=== PATIENT | male | born 1950 | race Caucasian/White ===

== ENCOUNTER 2017-05-10 15:56 | Observation (INO) | payer MEDICARE ==
[2017-05-10] MEDS ORDERED: SODIUM CHLORIDE 0.9% 1,000 ML IV STA (16:07)
[2017-05-10 16:38] LABS: Basophils % (A) 0 %; Eosinophils # (A) 0.1 k/uL (0-0.7); Eosinophils % (A) 1 %; HCT 45.9 % (39.0-53.0); HGB 15.3 gm/dL (13.0-17.5); Lymphocytes # (A) 1.4 k/uL (1.0-4.8); Lymphocytes % (A) 17 %; MCH 29.4 pg (25.0-35.0); MCHC 33.5 g/dL (31.0-37.0); MCV 87.8 fL (80.0-100.0); Mean Platelet Volume 6.9; Monocytes # (A) 0.6 k/uL (0-1.0); Monocytes % (A) 7 %; Neutrophils # (A) 6.2 k/uL (1.3-7.7); Neutrophils % (A) 73 %; Platelet Count 349 k/uL (150-450); RBC 5.22 m/uL (4.30-5.90); RDW 12.8 % (11.5-15.5); WBC 8.5 k/uL (3.8-10.6)
[2017-05-10 16:46] LABS: D-Dimer 0.2 mg/L FEU (<0.60)
--- NOTE | 2017-05-10 16:46 | XR ---
EXAMINATION TYPE: XR chest 2V DATE OF EXAM: 05/10/2017 COMPARISON: NONE HISTORY: Shortness of breath TECHNIQUE: Frontal and lateral views of the chest are obtained. FINDINGS: Scattered senescent parenchymal changes noted. No evidence for infiltrate. No evidence for atelectasis. Heart size is stable. Mediastinal structures are stable and grossly unremarkable. No evidence for hilar prominence. Degenerative changes dorsal spine. IMPRESSION: 1. No evidence for acute pulmonary disease.
[2017-05-10 16:50] LABS: Partial Thromboplastin Time 22.2 sec (22.0-30.0); Prothrombin Time 10.2 sec (9.0-12.0)
[2017-05-10 16:55] LABS: ALT 45 U/L (21-72); AST 37 U/L (17-59); Albumin 4.6 g/dL (3.5-5.0); Alkaline Phosphatase 81 U/L (38-126); Anion Gap 15 mmol/L; Blood Urea Nitrogen 15 mg/dL (9-20); Carbon Dioxide 22 mmol/L (22-30); Chloride 104 mmol/L (98-107); Glucose 93 mg/dL (74-99); Lipase 131 U/L (23-300); Magnesium 2.1 mg/dL (1.6-2.3); Potassium 4.3 mmol/L (3.5-5.1); Sodium 141 mmol/L (137-145); Total Bilirubin 0.6 mg/dL (0.2-1.3); Total Protein 7.6 g/dL (6.3-8.2)
[2017-05-10 16:58] LABS: Creatine Kinase 99 U/L (55-170)
[2017-05-10 17:10] LABS: Creatine Kinase MB 0.7 ng/mL (0.0-2.4); Troponin I <0.012 ng/mL (0.000-0.034)
--- NOTE | 2017-05-10 17:40 | ED ---
General Adult HPI - General Chief complaint: Chest Pain Stated complaint: Chest pain Time Seen by Provider: 05/10/17 16:07 Source: patient, RN notes reviewed, old records reviewed Mode of arrival: wheelchair Limitations: no limitations - History of Present Illness Initial comments: This is a 66-year-old male to the ER for evaluation. They presents for evaluation regards to chest pain. Patient has history of high cholesterol high blood pressure. Patient has no recent cardiac evaluation. Patient does have multiple ER and hospital visits for chest pain, patient does follow cardiology no prior heart catheterization had has has had prior stress test. Patient is not short of breath, no fever cough or congestion - Related Data Home Medications Medication Instructions Recorded Confirmed Aspirin EC [Ecotrin Low Dose] 81 mg PO DAILY 05/10/17 05/10/17 Calcium Carbonate/Vitamin D3 1 tab PO BID 05/10/17 05/10/17 [Calcium 500-Vit D3 200 Tablet] Cyanocobalamin [Vitamin B-12] 500 mcg PO DAILY 05/10/17 05/10/17 Lansoprazole [Prevacid] 30 mg PO HS 05/10/17 05/10/17 Niacin 250 mg PO HS 05/10/17 05/10/17 Simvastatin [Zocor] 40 mg PO HS 05/10/17 05/10/17 Telmisartan 80 mg PO DAILY 05/10/17 05/10/17 Allergies Allergy/AdvReac Type Severity Reaction Status Date / Time No Known Allergies Allergy Verified 05/10/17 16:37 Review of Systems ROS Statement: Those systems with pertinent positive or pertinent negative responses have been documented in the HPI. ROS Other: All systems not noted in ROS Statement are negative. Past Medical History Past Medical History: Cancer, Hypertension, Prostate Disorder History of Any Multi-Drug Resistant Organisms: None Reported Past Surgical History: Cholecystectomy, Hernia Repair Additional Past Surgical History / Comment(s): neck surgery Past Psychological History: Panic Disorder Smoking Status: Former smoker Past Alcohol Use History: Rare Past Drug Use History: None Reported General Exam Limitations: no limitations General appearance: alert, in no apparent distress Head exam: Present: atraumatic, normocephalic, normal inspection Eye exam: Present: normal appearance, PERRL, EOMI. Absent: scleral icterus, conjunctival injection, periorbital swelling ENT exam: Present: normal exam, mucous membranes moist Neck exam: Present: normal inspection. Absent: tenderness, meningismus, lymphadenopathy Respiratory exam: Present: normal lung sounds bilaterally. Absent: respiratory distress, wheezes, rales, rhonchi, stridor Cardiovascular Exam: Present: regular rate, normal rhythm, normal heart sounds. Absent: systolic murmur, diastolic murmur, rubs, gallop, clicks GI/Abdominal exam: Present: soft, normal bowel sounds. Absent: distended, tenderness, guarding, rebound, rigid Extremities exam: Present: normal inspection, full ROM, normal capillary refill. Absent: tenderness, pedal edema, joint swelling, calf tenderness Back exam: Present: normal inspection Neurological exam: Present: alert, oriented X3, CN II-XII intact Psychiatric exam: Present: normal affect, normal mood Skin exam: Present: warm, dry, intact, normal color. Absent: rash Course Vital Signs 05/10/17 15:58 Temperature 96.6 F L Pulse Rate 96 Respiratory 20 Rate Blood Pressure 122/70 O2 Sat by Pulse 99 Oximetry - Reevaluation(s) Reevaluation #1: 05/10/17 17:53 Patient still with chest pain at this time EKG Findings - EKG Comments: EKG Findings:: EKG shows normal sinus rhythm rate of 80, MT 190, QRS 164, QTC 449 Medical Decision Making - Medical Decision Making 66 male the ER for evaluation presents for chest pain history of high blood pressure high cholesterol, patient has had prior admissions for chest pain with no cause found. Patient with classic chest pain will be admitted for cardiac observation - Lab Data Result diagrams: 05/10/17 16:25 05/10/17 16:25 Lab Results 05/10/17 05/10/17 05/10/17 Range/Units 16:25 16:25 16:25 WBC 8.5 (3.8-10.6) k/uL RBC 5.22 (4.30-5.90) m/uL Hgb 15.3 (13.0-17.5) gm/dL Hct 45.9 (39.0-53.0) % MCV 87.8 (80.0-100.0) fL MCH 29.4 (25.0-35.0) pg MCHC 33.5 (31.0-37.0) g/dL RDW 12.8 (11.5-15.5) % Plt Count 349 (150-450) k/uL Neutrophils % 73 % Lymphocytes % 17 % Monocytes % 7 % Eosinophils % 1 % Basophils % 0 % Neutrophils # 6.2 (1.3-7.7) k/uL Lymphocytes # 1.4 (1.0-4.8) k/uL Monocytes # 0.6 (0-1.0) k/uL Eosinophils # 0.1 (0-0.7) k/uL Basophils # 0.0 (0-0.2) k/uL PT (9.0-12.0) sec INR (<1.2) APTT (22.0-30.0) sec D-Dimer (<0.60) mg/L FEU Sodium 141 (137-145) mmol/L Potassium 4.3 (3.5-5.1) mmol/L Chloride 104 (98-107) mmol/L Carbon Dioxide 22 (22-30) mmol/L Anion Gap 15 mmol/L BUN 15 (9-20) mg/dL Creatinine 0.89 (0.66-1.25) mg/dL Est GFR (CKD-EPI)AfAm >90 (>60 ml/min/1.73 sqM) Est GFR (CKD-EPI)NonAf >90 (>60 ml/min/1.73 sqM) Glucose 93 (74-99) mg/dL Calcium 10.0 (8.4-10.2) mg/dL Magnesium 2.1 (1.6-2.3) mg/dL Total Bilirubin 0.6 (0.2-1.3) mg/dL AST 37 (17-59) U/L ALT 45 (21-72) U/L Alkaline Phosphatase 81 (38-126) U/L Total Creatine Kinase 99 (55-170) U/L CK-MB (CK-2) 0.7 (0.0-2.4) ng/mL CK-MB (CK-2) Rel Index 0.7 Troponin I <0.012 (0.000-0.034) ng/mL Total Protein 7.6 (6.3-8.2) g/dL Albumin 4.6 (3.5-5.0) g/dL Lipase 131 (23-300) U/L 05/10/17 Range/Units 16:25 WBC (3.8-10.6) k/uL RBC (4.30-5.90) m/uL Hgb (13.0-17.5) gm/dL Hct (39.0-53.0) % MCV (80.0-100.0) fL MCH (25.0-35.0) pg MCHC (31.0-37.0) g/dL RDW (11.5-15.5) % Plt Count (150-450) k/uL Neutrophils % % Lymphocytes % % Monocytes % % Eosinophils % % Basophils % % Neutrophils # (1.3-7.7) k/uL Lymphocytes # (1.0-4.8) k/uL Monocytes # (0-1.0) k/uL Eosinophils # (0-0.7) k/uL Basophils # (0-0.2) k/uL PT 10.2 (9.0-12.0) sec INR 1.0 (<1.2) APTT 22.2 (22.0-30.0) sec D-Dimer 0.20 (<0.60) mg/L FEU Sodium (137-145) mmol/L Potassium (3.5-5.1) mmol/L Chloride (98-107) mmol/L Carbon Dioxide (22-30) mmol/L Anion Gap mmol/L BUN (9-20) mg/dL Creatinine (0.66-1.25) mg/dL Est GFR (CKD-EPI)AfAm (>60 ml/min/1.73 sqM) Est GFR (CKD-EPI)NonAf (>60 ml/min/1.73 sqM) Glucose (74-99) mg/dL Calcium (8.4-10.2) mg/dL Magnesium (1.6-2.3) mg/dL Total Bilirubin (0.2-1.3) mg/dL AST (17-59) U/L ALT (21-72) U/L Alkaline Phosphatase (38-126) U/L Total Creatine Kinase (55-170) U/L CK-MB (CK-2) (0.0-2.4) ng/mL CK-MB (CK-2) Rel Index Troponin I (0.000-0.034) ng/mL Total Protein (6.3-8.2) g/dL Albumin (3.5-5.0) g/dL Lipase (23-300) U/L - Radiology Data Radiology results: report reviewed (Chest x-rays negative for acute disease), image reviewed Critical Care Time Critical Care Time: Yes Total Critical Care Time: 31 Disposition Clinical Impression: Chest pain Disposition: ADMITTED IP TO THIS HOSP Condition: Undetermined Instructions: Chest Pain (ED) Referrals: Jose Carlos Brownlee MD [Primary Care Provider] - 1-2 days
[2017-05-10] MEDS ORDERED: ASPIRIN 81 MG PO STA (17:46)
[2017-05-10] MEDS ORDERED: NITROGLYCERIN SL TABS 0.4 MG TAB SUBLINGUAL PRN (17:46)
[2017-05-10] MEDS ORDERED: HEPARIN SODIUM,PORCINE 5,000 UNIT/ML 1 ML VIAL IV ONE (17:46)
[2017-05-10] MEDS ORDERED: HEPARIN SODIUM,PORCINE 5,000 UNIT/ML 1 ML VIAL IV PRN (17:46)
[2017-05-10] MEDS ORDERED: HEPARIN SOD,PORK IN 0.45% NACL 25,000 UNIT in 0.45% NACL 1 500ML.BAG IV SCH (18:00)
[2017-05-10] MEDS: SODIUM CHLORIDE 0.9% 1,000 ML IV SCH (18:51)
[2017-05-10 20:11] VITALS: BMI 26.6
[2017-05-10] MEDS ORDERED: PANTOPRAZOLE 40 MG TABLET PO SCH (21:15)
[2017-05-10] MEDS ORDERED: ATORVASTATIN 20 MG TAB PO SCH (21:15)
[2017-05-10] MEDS ORDERED: ACETAMINOPHEN TAB 325 MG TAB PO PRN (21:18)
[2017-05-10] MEDS: METOPROLOL TARTRATE 25 MG TAB PO SCH (21:23)
[2017-05-10 23:23] LABS: Creatine Kinase 81 U/L (55-170)
[2017-05-10 23:37] LABS: Creatine Kinase MB 0.6 ng/mL (0.0-2.4); Troponin I <0.012 ng/mL (0.000-0.034)
[2017-05-11 04:36] LABS: Platelet Count 281 k/uL (150-450)
[2017-05-11 04:52] LABS: Creatine Kinase 77 U/L (55-170)
[2017-05-11 04:54] LABS: Cholesterol 174 mg/dL (<200); HDL Cholesterol 49 mg/dL (40-60); LDL Cholesterol,Calculated 101 mg/dL (0-99); Triglycerides 118 mg/dL (<150)
[2017-05-11 05:03] LABS: Creatine Kinase MB 0.5 ng/mL (0.0-2.4); Troponin I <0.012 ng/mL (0.000-0.034)
[2017-05-11] MEDS: SODIUM CHLORIDE 0.9% 1,000 ML IV SCH (07:56)
[2017-05-11] MEDS ORDERED: CALCIUM CARB-VIT D 500MG-200UN 1 EACH TAB PO SCH (09:00)
[2017-05-11] MEDS ORDERED: LOSARTAN 50 MG TAB PO SCH (09:00)
[2017-05-11] MEDS ORDERED: ASPIRIN 81 MG PO SCH (09:00)
[2017-05-11] MEDS ORDERED: CYANOCOBALAMIN 500 MCG TAB PO SCH (09:00)
[2017-05-11] MEDS ORDERED: ASPIRIN 325 MG TAB PO SCH (09:00)
--- NOTE | 2017-05-11 09:42 | CONS ---
CONSULTATION CHIEF COMPLAINT: Chest pain. HISTORY OF PRESENT ILLNESS: Gregorio is a 66-year-old gentleman with history of hypertension, dyslipidemia, presented to hospital complaining of chest pain. He describes it as a sharp precardial pain and associated with with diaphoresis, unrelated to exertion with no definite radiation to the neck, arm or back. It came on yesterday and then has gradually subsided. The patient has had problems with epigastric pain in the past and also had chest discomfort for which he was evaluated at [facility] Emergency room within the last few weeks. The patient had a negative stress test 5 years ago and again 2 years ago and used to see my associate, Dr. Les Mckeon. He did not have prior cardiac catheterization, but had a negative stress test. EKG on this admission shows sinus rhythm with right bundle branch block. Cardiac enzymes have been negative. At the time of my evaluation, he is pain free. Hemodynamically stable. PAST MEDICAL HISTORY: Significant for hypertension, dyslipidemia. MEDICATIONS: Include aspirin, Prevacid, niacin, Zocor, and telmisartan. ALLERGIES: No known drug allergies. FAMILY HISTORY: Negative for premature coronary artery disease. SOCIAL HISTORY: Negative for current smoking, ETOH use, or drug abuse. REVIEW OF SYSTEMS: HEENT is unremarkable. Cardiac as described above. Respiratory negative. GI negative. Genitourinary negative. Allergy/Immunology: Negative. Skin: Negative. Musculoskeletal significant for arthritis. Psychosocial negative. Endocrine: Negative. Oncological negative. CONSTITUTIONAL: Negative. Derm: Negative. Rest of the systems review is not relevant. PAST SURGICAL HISTORY: Significant for cholecystectomy, neck surgery, hernia repair. Past medical history is also significant for panic disorder. PHYSICAL EXAMINATION: On exam, comfortable at rest. Vital signs is stable. There is no jugular venous distention. Carotid upstroke is normal. There is no bruit. Chest exam reveals good air entry bilaterally. Heart exam reveals first and second heart sounds. No gallop. No murmur. No rub. Abdomen is soft, nontender. Exam of extremities did not reveal any edema. Peripheral pulses are felt. ASSESSMENT: 1. Precardial chest pain. 2. Hypertension. 3. Dyslipidemia. PLAN: Patient's chest discomfort seems atypical. Myocardial infarction is ruled out. I will obtain a 2D echo on him and stop the heparin, ambulate him and we should be able to discharge him home later today and arrange outpatient followup and outpatient stress test. MMNELDAL / CHANIN: [id number] /
[2017-05-11] MEDS: METOPROLOL TARTRATE 25 MG TAB PO SCH (10:05)
--- NOTE | 2017-05-11 14:15 | ECHOF ---
Referral Reason: MEASUREMENTS -------- HEIGHT: 172.7 cm WEIGHT: 79.4 kg BP: 120/60 IVSd: 1.3 cm (0.6 - 1.1) LVIDd: 4.7 cm (3.9 - 5.3) LVPWd: 1.2 cm (0.6 - 1.1) IVSs: 1.5 cm LVIDs: 3.8 cm LVPWs: 1.2 cm LAESV Index (A-L): 23.77 ml/m Ao Diam: 3.4 cm (2.0 - 3.7) AV Cusp: 1.8 cm (1.5 - 2.6) LA Diam: 3.4 cm (2.7 - 3.8) MV EXCURSION: 21.518 mm (> 18.000) MV EF SLOPE: 77 mm/s (70 - 150) EPSS: 0.2 cm MV E Benson: 0.47 m/s MV DecT: 239 ms MV A Benson: 0.55 m/s MV E/A Ratio: 0.87 RAP: 5.00 mmHg RVSP: 10.41 mmHg FINDINGS -------- Sinus rhythm. This was a technically adequate study. The left ventricular size is normal. There is mild concentric left ventricular hypertrophy. Overa ll left ventricular systolic function is normal with, an EF between 55 - 60 %. The right ventricle is normal in size. Normal LA size by volume 22+/-6 ml/m2. The right atrial size is normal. The aortic valve is trileaflet, and appears structurally normal. No aortic stenosis or regurgitation. Mild mitral regurgitation is present. Mild tricuspid regurgitation present. There is no evidence of pulmonary hypertension. The right v entricular systolic pressure, as measured by Doppler, is 10.41mmHg. Trace/mild (physiologic) pulmonic regurgitation. The aortic root size is normal. There is no pericardial effusion. CONCLUSIONS -------- 1. The left ventricular size is normal. 2. There is mild concentric left ventricular hypertrophy. 3. Overall left ventricular systolic function is normal with, an EF between 55 - 60 %. 4. Normal LA size by volume 22+/-6 ml/m2. 5. The aortic valve is trileaflet, and appears structurally normal. No aortic stenosis or regurgitati on. 6. Mild mitral regurgitation is present. 7. Mild tricuspid regurgitation present. 8. There is no evidence of pulmonary hypertension. 9. The right ventricular systolic pressure, as measured by Doppler, is 10.41mmHg. 10. Trace/mild (physiologic) pulmonic regurgitation. 11. The aortic root size is normal. 12. There is no pericardial effusion. SIGN BOARD ERECTOR: Elina Salinas RDCS
[2017-05-11 16:02] VITALS: BP 115/67; PULSE 73; RESP 16; TEMP 97.5
--- NOTE | 2017-05-11 18:23 | P.DS ---
Providers Date of admission: 05/10/17 17:46 Attending physician: Maritza Abraham Consults: 05/10/17 17:46 Consult Physician Urgent Consulting Provider: Tulio Thomason Consult Reason/Comments: cp Do you want consulting provider notified?: Yes Primary care physician: Jose Carlos Brownlee Hospital Course: Please refer to my HPI Patient Condition at Discharge: Undetermined Plan - Discharge Summary Discharge Rx Participant: No New Discharge Prescriptions: No Action Lansoprazole [Prevacid] 30 mg PO HS Cyanocobalamin [Vitamin B-12] 500 mcg PO DAILY Telmisartan 80 mg PO DAILY Simvastatin [Zocor] 40 mg PO HS Niacin 250 mg PO HS Calcium Carbonate/Vitamin D3 [Calcium 500-Vit D3 200 Tablet] 1 tab PO BID Aspirin EC [Ecotrin Low Dose] 81 mg PO DAILY Discharge Medication List Aspirin EC [Ecotrin Low Dose] 81 mg PO DAILY 05/10/17 [History] Calcium Carbonate/Vitamin D3 [Calcium 500-Vit D3 200 Tablet] 1 tab PO BID [History] Cyanocobalamin [Vitamin B-12] 500 mcg PO DAILY 05/10/17 [History] Lansoprazole [Prevacid] 30 mg PO HS 05/10/17 [History] Niacin 250 mg PO HS 05/10/17 [History] Simvastatin [Zocor] 40 mg PO HS 05/10/17 [History] Telmisartan 80 mg PO DAILY 05/10/17 [History] Follow up Appointment(s)/Referral(s): Jose Carlos Brownlee MD [Primary Care Provider] - 3 Days Balaji Moses MD [STAFF PHYSICIAN] - 1 Week (Office will call to arrange follow up appointment) Patient Instructions/Handouts: Chest Pain (ED) Discharge Disposition: HOME SELF-CARE
--- NOTE | 2017-05-11 18:23 | P.HPIM ---
History of Present Illness 62-year-old the female came in with complaints of chest pain pre-cardial and stairs severity no radiation completely subsided at this time patient had a patient's pain is epigastric area not related to food patient appears to have gastritis patient was given already on lansoprazole as an outpatient, patient's chest pain is nonpleuritic not associated with food. Patient was evaluated by cardiology regarding outpatient stress test ruled out acute coronary syndromes chest x-ray did not show any pneumonic process. Review of Systems REVIEW OF SYSTEMS: CONSTITUTIONAL: No fever, no malaise, no fatigue. HEENT: No recent visual problems or hearing problems. Denied any sore throat. CARDIOVASCULAR: No orthopnea, PND, no palpitations, no syncope. PULMONARY: No shortness of breath, no cough, no hemoptysis. GASTROINTESTINAL: No diarrhea, no nausea, no vomiting, no abdominal pain. Normoactive bowel sounds. NEUROLOGICAL: No headaches, no weakness, no numbness. HEMATOLOGICAL: Denies any bleeding or petechiae. GENITOURINARY: Denies any burning micturition, frequency, or urgency. MUSCULOSKELETAL/RHEUMATOLOGICAL: Denies any joint pain, swelling, or any muscle pain. ENDOCRINE: Denies any polyuria or polydipsia. The rest of the 14-point review of systems is negative. Past Medical History Past Medical History: Cancer, GERD/Reflux, Hyperlipidemia, Hypertension, Prostate Disorder Additional Past Medical History / Comment(s): 2012 radiation for prostate CA History of Any Multi-Drug Resistant Organisms: None Reported Past Surgical History: Appendectomy, Cholecystectomy, Hernia Repair, Orthopedic Surgery Additional Past Surgical History / Comment(s): neck surgery-cervicle repair, Inguinal hernia repair, routine colonoscopies Past Anesthesia/Blood Transfusion Reactions: No Reported Reaction Past Psychological History: Panic Disorder Smoking Status: Former smoker Past Alcohol Use History: Rare Past Drug Use History: None Reported - Past Family History Mother Additional Family Medical History / Comment(s): Heart cath minimal disease Medications and Allergies Home Medications Medication Instructions Recorded Confirmed Type Aspirin EC [Ecotrin Low Dose] 81 mg PO DAILY 05/10/17 05/10/17 History Calcium Carbonate/Vitamin D3 1 tab PO BID 05/10/17 05/10/17 History [Calcium 500-Vit D3 200 Tablet] Cyanocobalamin [Vitamin B-12] 500 mcg PO DAILY 05/10/17 05/10/17 History Lansoprazole [Prevacid] 30 mg PO HS 05/10/17 05/10/17 History Niacin 250 mg PO HS 05/10/17 05/10/17 History Simvastatin [Zocor] 40 mg PO HS 05/10/17 05/10/17 History Telmisartan 80 mg PO DAILY 05/10/17 05/10/17 History Allergies Allergy/AdvReac Type Severity Reaction Status Date / Time No Known Allergies Allergy Verified 05/10/17 20:01 Physical Exam Vitals: Vital Signs Temp Pulse Pulse Resp BP BP Pulse Ox 05/11/17 16:00 97.5 F L 73 16 115/67 96 05/11/17 12:00 97.6 F 80 14 113/68 94 L 05/11/17 08:00 97.8 F 64 16 106/61 95 05/11/17 04:00 97.6 F 64 16 118/76 96 05/11/17 03:21 60 16 05/10/17 23:24 72 16 05/10/17 23:15 98 F 72 16 109/75 97 05/10/17 20:00 97.7 F 74 18 145/90 97 05/10/17 18:54 74 16 125/83 97 05/10/17 18:26 97.7 F 74 18 145/90 97 Intake and Output 05/11/17 05/11/17 05/11/17 06:59 14:59 22:59 Intake Total 621.04 Balance 621.04 Intake: IV 168 Heparin Sod,Pork in 0.45% 168 NaCl 25,000 unit In 0.45 % NaCl 1 500ml.bag @ 12 UNITS/KG/HR 19.05 mls/hr IV .Q24H NATASHA Rx#: [id number] Intake, IV Titration 353.04 Amount Heparin Sod,Pork in 0.45% 193.04 NaCl 25,000 unit In 0.45 % NaCl 1 500ml.bag @ 12 UNITS/KG/HR 19.05 mls/hr IV .Q24H NATASHA Rx#: [id number] Sodium Chloride 0.9% 1, 160 000 ml @ 100 mls/hr IV . Q10H NATASHA Rx#:[id number] Oral 100 Other: Voiding Method Toilet Toilet # Voids 2 PHYSICAL EXAMINATION: GENERAL: The patient is alert and oriented x3, not in any acute distress. Well developed, well nourished. HEENT: Pupils are round and equally reacting to light. EOMI. No scleral icterus. No conjunctival pallor. Normocephalic, atraumatic. No pharyngeal erythema. No thyromegaly. CARDIOVASCULAR: S1 and S2 present. No murmurs, rubs, or gallops. PULMONARY: Chest is clear to auscultation, no wheezing or crackles. ABDOMEN: Soft, nontender, nondistended, normoactive bowel sounds. No palpable organomegaly. MUSCULOSKELETAL: No joint swelling or deformity. EXTREMITIES: No cyanosis, clubbing, or pedal edema. NEUROLOGICAL: Gross neurological examination did not reveal any focal deficits. SKIN: No rashes. Results CBC & Chem 7: 05/11/17 04:03 05/10/17 16:25 Labs: Abnormal Lab Results - Last 24 Hours (Table) 05/11/17 05/11/17 Range/Units 04:03 04:03 APTT 38.2 H (22.0-30.0) sec LDL Cholesterol, Calc 101 H (0-99) mg/dL Thrombosis Risk Factor Assmnt - Choose All That Apply Each Risk Factor Represents 2 Points: Age 61-74 years Thrombosis Risk Factor Assessment Total Risk Factor Score: 2 Thrombosis Risk Factor Assessment Level: Low Risk Assessment and Plan Plan: -Chest pain probably related to gastritis or gastric visual reflux disease lansoprazole will be continued patient will need an outpatient stress test patient does have significant risk factors negative. -Hyperlipidemia -hypertension -Ruled out acute coronary syndromes
== END 2017-05-11 17:17 | disposition home or self-care (01) ==
LOC: EC 15:56 → 3SUR 17:46
PROVIDERS: ADMIT Hospitalist; ATTEND Hospitalist
DX: R07.89 Other chest pain (principal); R07.2 Precordial pain; R10.13 Epigastric pain; R61 Generalized hyperhidrosis; E78.5 Hyperlipidemia, unspecified; I10 Essential (primary) hypertension; K21.9 Gastro-esophageal reflux disease without esophagitis; F41.0 Panic disorder [episodic paroxysmal anxiety]; Z79.82 Long term (current) use of aspirin; Z79.899 Other long term (current) drug therapy; Z87.891 Personal history of nicotine dependence; Z85.46 Personal history of malignant neoplasm of prostate
CPT/HCPCS: 99291 ×2; 96361 ×3; 96376 ×2; 96365 ×2; 96366 ×2; 36415; 93005; 93306; 85379; 80061; 80053; 82550 ×2; 82553 ×2; 83690; 83735; 84484 ×2; 85025; 85049; 85610; 85730 ×2; 71046; G0378 ×2; J1644 ×2

== ENCOUNTER → 2017-10-14 | Outpatient (CLI) | payer MEDICARE ==
--- NOTE | 2017-10-14 14:02 | CT ---
EXAMINATION TYPE: CT ChestAbdPelvis w con DATE OF EXAM: 10/14/2017 COMPARISON: None HISTORY: 66-year-old male elevated PSA, history of Prostate CA TECHNIQUE: Contiguous axial scanning of the chest, abdomen, and pelvis performed with IV Contrast, pa tient injected with 100 mL of Isovue 300. Delayed images through the kidneys were obtained. Coronal/s agittal reconstructions performed. CT DLP: 978.1 mGycm Automated exposure control for dose reduction was used. FINDINGS: Chest: Heart normal size without pericardial effusion. Ectatic upper descending thoracic aorta at 3.0 cm. Co nventional arch vessel branching anatomy. Trace bilateral gynecomastia. No thoracic lymphadenopathy by CT size criteria. Minimal emphysematous changes at the apices. Nonspecific 6 mm anterior right midlung pulmonary nodule axial image 22. Strandy areas of atelectasis in the lower lungs. No consolidation or pleural effusio n. ABDOMEN: Small hiatal hernia. A couple subcentimeter hypodensity left liver lobe too small for accurate CT characterization, likely tiny cysts. Portal venous system is patent. Cholecystectomy clips. No biliary ductal dilatation. Adrenal glands, right kidney, spleen with anterior splenule, and pancreas appear within normal limits . Extrarenal pelvis on the left. No dilated small bowel, free fluid, or free air. Oral contrast has progressed to the transverse colon. No significant stool burden. No pericolonic inf lammatory change. A number of borderline to mildly enlarged mid mesenteric lymph nodes are noted measuring up to 8 mm, refer to coronal images 28 through 33. No retroperitoneal lymphadenopathy. Accessory right renal artery noted. Pelvis: Bladder urine distended. Prostate gland mildly prominent at 4.2 cm wide. However, there is a 1.0 cm area of nodular enhancement right lateral aspect of the prostate gland, refer to axial images 117 and 118. No abnormal fluid collection in the pelvis or pelvic lymphadenopathy. Bones: Mild degenerative changes at the SI joints. Some facet arthropathy and degenerative disc disease lowe r lumbar spine. Old superior endplate Schmorl's node or compression deformity of T9 vertebral body an d ACDF hardware. Endplate spondylosis lower thoracic spine. No osseous destructive process. IMPRESSION: 1. 1 CM AREA OF NODULAR ENHANCEMENT IN THE RIGHT PERIPHERAL ZONE OF THE PROSTATE GLAND MAY REPRESENT A FOCUS OF PROSTATE CANCER. NO SUSPICIOUS RETROPERITONEAL LYMPHADENOPATHY OR OSTEOBLASTIC LESION SEEN . 2. A FEW BORDERLINE TO MILDLY ENLARGED MID MESENTERIC LYMPH NODES MEASURING UP TO 8 MM. THESE ARE NON SPECIFIC AND MAY BE REACTIVE/POST INFLAMMATORY. REASSESS IN 3 MONTHS. 3. A 6 MM ANTERIOR RIGHT MIDLUNG PULMONARY NODULE IS ALSO NONSPECIFIC AND SHOULD ALSO BE REASSESSED A T FOLLOW-UP.
--- NOTE | 2017-10-14 15:15 | NM ---
EXAMINATION TYPE: NM bone scan whole body DATE OF EXAM: 10/14/2017 COMPARISON: NONE HISTORY: C61 prostate CA Delayed whole-body scanning was performed following the injection of 23 mCi Tc 99m MDP. Images acqui red 3 hours post injection. FINDINGS: Focal increased uptake noted to involve the left supra-acetabular region as well as a posterior right rib #4. Right-sided pedicle uptake involving T6-T9. Metastatic disease is not excluded. Degenerative uptake about the shoulders, sternoclavicular joints, spine and bilateral wrists and feet. IMPRESSION: 1. Findings suspicious for metastatic disease. Radiographic correlation advised.
== END | disposition home or self-care (01) ==
LOC: RADNMMAIN 10:00
PROVIDERS: ATTEND Internal Medicine Hematology & Oncology
DX: C61 Malignant neoplasm of prostate (principal); R91.1 Solitary pulmonary nodule; R59.0 Localized enlarged lymph nodes
CPT/HCPCS: 82565; 84520; 71260; 74177; 36415; 78306; A9503; Q9967

== ENCOUNTER → 2017-10-23 | Outpatient (CLI) | payer MEDICARE ==
--- NOTE | 2017-10-24 17:26 | MR ---
MR left hip HISTORY: Abnormal bone scan, prostate cancer Multiplanar multisequence and postcontrast images obtained through the pelvis with small [id number] w images through the left hip, patient received 7.5 cc Gadavist IV. Correlation to bone scan 10/14/2017, CT scan 10/14/2017 FINDINGS: There is abnormal increased signal on T2-weighted sequences involving the left ilium, corre sponding intermediate, low signal present on T1-weighted images. There is corresponding sclerosis see n on CT, abnormal bone scan at this level. Some corresponding enhancement is present following contra st administration. There is no evident joint effusion. Acetabular donald are intact. Some increased signal present at the sacroiliac joints is symmetric and there is likely degenerative change with marginal spurring, hypertrophic change. Prostate is not sign ificantly enlarged. IMPRESSION: Findings compatible with metastatic focus to the left ilium.
== END | disposition home or self-care (01) ==
LOC: RADMRIMAIN 12:44
PROVIDERS: ATTEND Internal Medicine Hematology & Oncology
DX: R93.6 Abnormal findings on diagnostic imaging of limbs (principal); C61 Malignant neoplasm of prostate
CPT/HCPCS: 73723; A9581

== ENCOUNTER → 2018-02-17 | Outpatient (CLI) | payer MEDICARE ==
--- NOTE | 2018-02-17 08:10 | MR ---
EXAMINATION TYPE: MR tspine/lspine wo/w con DATE OF EXAM: 02/17/2018 COMPARISON: CT chest abdomen pelvis dated 10/14/2017 and nuclear medicine bone scan dated 10/11/2017 HISTORY: Hx of prev. back surgery 2000, Prostate CA 2011, back pain x .2 months,Gadavist 7.5 ml TECHNIQUE: Multiplanar, multisequence images of the lumbar spine is performed without and with IV contrast, util izing 7.5 mL intravenous Gadavist FINDINGS: Thoracic spine: Alignment and vertebral body height of the thoracic spine are maintained. There are T 2/T1 hyperintense vertebral body hemangiomas of T2, T5 and L1. Otherwise the bone marrow signal is ov erall within normal limits without suspicious T2/T1 hypointense lesions. The visualized thoracic spin al cord signal is within normal limits as is the morphology. Prominent midthoracic epidural fat is no christopher. Dependent atelectasis is scattered throughout the lungs. Schmorl's node is seen of the superior endplate of T9. Multilevel disc desiccation is noted througho ut the thoracic spine. There is partial visualization of cervical fusion of the lower cervical spine. There is T2 hypointensity within the posterior right fourth rib. This does not demonstrate enhancemen t. There is no focal disc herniation, spinal canal stenosis or neural foraminal narrowing within the tho racic spine. Lumbar spine: Rudimentary disc is seen at S1-S2. Again vertebral body hemangioma seen of L1. Conus me dullaris is unremarkable terminating at L1. Multilevel disc desiccation is seen. Alignment and verteb ral body height of the lumbar spine are maintained. L1-L2: There is disc desiccation and a broad-based disc bulge without spinal canal stenosis nor neura l foraminal narrowing. L2-L3: There is a broad-based disc bulge and facet arthropathy resulting in mild bilateral neural for aminal narrowing. No spinal canal stenosis. L3-L4: There is a broad-based disc bulge and facet arthropathy resulting in mild bilateral neural for aminal narrowing without spinal canal stenosis. L4-L5: There is a left eccentric broad-based disc bulge resulting in mild right and moderate left ghazal ral foraminal narrowing. There is also a left foraminal herniation superimposed upon the left eccentr ic disc bulge contributing to the foraminal stenosis. No spinal canal stenosis. L5-S1: There is a right eccentric broad-based disc bulge and facet arthropathy resulting in moderate to severe right neural foraminal narrowing and mild left neural foraminal narrowing. No spinal canal stenosis. There is no abnormal enhancement within the lumbar spine. Incidental note is made of a left-sided ext rarenal pelvis. IMPRESSION: 1. 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 Although there is no enhancement there is abnormal bone marrow replacement that in correlation with the abnormal up take on the recent nuclear medicine bone scan again are most compatible with osseous metastasis. 2. Multifocal mild degenerative disc disease of the thoracic spine most pronounced at T8-T9. No focal disc herniation, neural foraminal narrowing or spinal canal stenosis. 3. Left foraminal disc herniation at L4-L5 contributing to moderate left neural foraminal narrowing. 4. Right eccentric broad-based disc bulge at L5-S1 contributing to moderate to severe right neural fo raminal narrowing. 5. Multilevel degenerative disc disease of the lumbar spine as described above.
== END ==
LOC: RADMRIMAIN 06:09
PROVIDERS: ATTEND Internal Medicine Hematology & Oncology
DX: M99.73 Connective tissue and disc stenosis of intervertebral foramina of lumbar region (principal); M51.27 Other intervertebral disc displacement, lumbosacral region; M51.35 Other intervertebral disc degeneration, thoracolumbar region
CPT/HCPCS: 72157; 72158; A9585

== ENCOUNTER → 2018-04-24 | Outpatient (CLI) | payer MEDICARE ==
--- NOTE | 2018-04-24 14:57 | NM ---
EXAMINATION TYPE: NM bone scan whole body DATE OF EXAM: 04/24/2018 COMPARISON: 10/14/2017 HISTORY: Prostate carcinoma Delayed whole-body scanning was performed following the injection of 24.8 mCi Tc 99m MDP. Images acq uired 3.5 hours post injection. FINDINGS: There is asymmetric focal uptake within the left superior acetabulum and sacroiliac joint as well as within the right fourth rib is seen on the prior examination. Pedicular uptake from approximately T6- 9 is also unchanged on the right. The remainder the osseous structures degenerative changes are seen as uptake within the glenohumeral joints, sternoclavicular joints, acromioclavicular joints, elbows, wrists, knees, ankles and first me tatarsal phalangeal joints. IMPRESSION: New abnormal uptake along the right sacroiliac joint. Otherwise stable metastatic foci within the rig ht fourth rib, sixth through ninth pedicles, and left superior acetabulum.
== END | disposition home or self-care (01) ==
LOC: RADNMMAIN 09:55
PROVIDERS: ATTEND Internal Medicine Hematology & Oncology
DX: C61 Malignant neoplasm of prostate (principal); C79.51 Secondary malignant neoplasm of bone
CPT/HCPCS: 78306; A9503

== ENCOUNTER 2018-05-14 08:08 | Day surgery (SDC) | payer MEDICARE ==
[2018-05-12 10:47] VITALS: BMI 27.3
[~2018-05-14 08:08] MED LIST: LACTATED RINGERS 1,000 ML IV SCH; LIDOCAINE 1% 20 ML VIAL (10MG/ML) FOR IV START INTRADERMA PRN
[2018-05-14 09:00] VITALS: TEMP 97.8
[2018-05-14] MEDS ORDERED: LACTATED RINGERS 1,000 ML IV ONE (09:00)
[2018-05-14] MEDS ORDERED: LIDOCAINE 1% 20 ML VIAL (10MG/ML) FOR IV START INTRADERMA ONE (09:09)
[2018-05-14] MEDS ORDERED: LIDOCAINE 1% INJ 10MG/ML (20 ML MDV) ONE (09:40)
[2018-05-14] MEDS ORDERED: PROPOFOL 10 MG/ML 20 ML VIAL IV ONE (09:40)
--- NOTE | 2018-05-14 09:52 | P.PCN ---
Date of Procedure: 05/14/18 Procedure(s) Performed: BRIEF HISTORY: Patient is a 67-year-old, pleasant, white male, scheduled for an upper endoscopy as a part of value should also history of GERD and intermittent epigastric pain and atypical chest pain for the last few months duration. Has been on Nexium 40 mg daily and Zantac at bedtime and still remains symptomatic. He is here for an upper endoscopy to evaluate further PROCEDURE PERFORMED: Esophagogastroduodenoscopy With biopsy PREOPERATIVE DIAGNOSIS: GERD/atypical chest pain. IV sedation per anesthesia. PROCEDURE: After informed consent was obtained, the patient was brought into the endoscopy unit. IV sedation was administered by Anesthesia under continuous monitoring. Initially the Olympus GIF-140 video endoscope was inserted into the mouth. Esophagus intubated without any difficulty. It was gradually advanced into the stomach and duodenum and carefully examined. The bulb and the second part of the duodenum appeared normal. The scope at this time was withdrawn to the stomach, adequately insufflated with air, and upon careful examination, mucosa of the antrum, had mild gastritis and biopsies were done from this area. The body, cardia and the fundus appeared normal. The scope was then withdrawn into the esophagus. The GE junction was located at 39 cm from the incisors. Small sliding Hiatal hernia noted. The esophagus appeared normal. There were no erosions or ulcerations seen, biopsies were done from the distal esophagus and the patient tolerated the procedure well. IMPRESSION: 1. Small sliding Hiatal hernia but no evidence of esophagitis. 2. Mild antral gastritis. RECOMMENDATIONS: The findings of this examination were discussed with the patient as well as his family. He was advised to follow with the biopsy results. He will continue with Nexium 40 mg daily and Zantac 150 milligrams at bedtime as well as Carafate as needed. He'll follow with the biopsy results and he'll be seen in the office in 3-4 weeks.
[2018-05-14 10:11] VITALS: BP 113/75; PULSE 71; RESP 16
== END 2018-05-14 10:38 | disposition home or self-care (01) ==
LOC: ORWHC2ENDO 08:08
PROVIDERS: ATTEND Internal Medicine Gastroenterology
DX: K21.0 Gastro-esophageal reflux disease with esophagitis (principal); K29.70 Gastritis, unspecified, without bleeding; K31.9 Disease of stomach and duodenum, unspecified; K44.9 Diaphragmatic hernia without obstruction or gangrene; R07.89 Other chest pain; I10 Essential (primary) hypertension; E78.5 Hyperlipidemia, unspecified; Z87.891 Personal history of nicotine dependence; Z85.46 Personal history of malignant neoplasm of prostate; Z79.82 Long term (current) use of aspirin; Z79.899 Other long term (current) drug therapy
CPT/HCPCS: 88305; 43239; J2001; J2704

== ENCOUNTER → 2018-06-26 | Outpatient (CLI) | payer MEDICARE ==
[2018-06-26 13:45] LABS: African American GFR (CKD) >90 (>60 ml/min/1.73 sqM); Blood Urea Nitrogen 17 mg/dL (9-20)
--- NOTE | 2018-06-26 15:34 | CT ---
EXAMINATION TYPE: CT abdomen pelvis w con DATE OF EXAM: 06/26/2018 COMPARISON: 10/14/2017 HISTORY: 67-year-old male with generalized abdominal pain, prostate cancer TECHNIQUE: Contiguous axial scanning of the abdomen and pelvis following administration of 100 ml Iso cynthia 300 IV contrast. Delayed images through the kidneys and coronal/sagittal reconstructions perform ed. CT DLP: 920.2 mGycm Automated exposure control for dose reduction was used. FINDINGS: Heart normal size without pericardial effusion. Lung bases clear without pleural effusion. Tiny hiatal hernia. A couple subcentimeter hypodensities left liver lobe [address] characterization, likely tiny cysts, unchanged from prior exam. There is a geographic area of hypodensity at the cindi hepatis, likely focal fat. Portal venous system is patent. No biliary ductal dilatation. Cholecystectomy clips are present. Adrenal glands, kidneys, spleen with anterior splenule, and pancreas appear within normal limits. Stable borderline sized mesenteric lymph nodes measuring up to 8 mm likely reactive/post inflammatory . Oral contrast progressed to the splenic flexure. No pericolonic inflammatory change. No retroperitoneal lymphadenopathy. Circumferential bladder wall thickening. Prostate gland is smaller now measuring 3.4 cm wide versus 4 .2 cm, previously. No abnormal enhancement is identified in the prostate gland. No abnormal fluid col lection in the pelvis or pelvic lymphadenopathy. Bones: Stable focal sclerosis anterior/superior left acetabulum. Endplate spondylosis lower thoracic spine. IMPRESSION: 1. BORDERLINE SIZED MESENTERIC LYMPH NODES MEASURING UP TO 8 MM ARE UNCHANGED SUGGESTING A CHRONIC RE ACTIVE/POST INFLAMMATORY ETIOLOGY. 2. THE PROSTATE GLAND MEASURES SMALLER (3.4 CM) COMPARED TO PRIOR EXAM WHERE IT MEASURED 4.2 CM. L KEITH TREATMENT EFFECT. NO NEW LYMPHADENOPATHY OR EVIDENCE FOR LOCAL RECURRENCE. 3. CIRCUMFERENTIAL BLADDER WALL THICKENING COULD REPRESENT CHRONIC BLADDER WALL HYPERTROPHY, CYSTITIS , OR POSTTREATMENT CHANGE. 4. STABLE FOCAL SCLEROSIS ANTERIOR SUPERIOR LEFT ACETABULUM. NO NEW SCLEROTIC LESIONS IDENTIFIED.
[2018-06-26 16:22] LABS: ALT 41 U/L (21-72); AST 48 U/L (17-59); African American GFR (CKD) >90 (>60 ml/min/1.73 sqM); Albumin 4.5 g/dL (3.5-5.0); Alkaline Phosphatase 63 U/L (38-126); Anion Gap 6 mmol/L; Blood Urea Nitrogen 16 mg/dL (9-20); Calcium 9.3 mg/dL (8.4-10.2); Carbon Dioxide 26 mmol/L (22-30); Chloride 107 mmol/L (98-107); Glucose 101 mg/dL (74-99); Potassium 4.5 mmol/L (3.5-5.1); Sodium 139 mmol/L (137-145); Total Bilirubin 0.6 mg/dL (0.2-1.3); Total Protein 7.5 g/dL (6.3-8.2)
== END | disposition home or self-care (01) ==
LOC: RADCTMAIN 13:06
PROVIDERS: ATTEND Internal Medicine Hematology & Oncology
DX: Z03.89 Encounter for observation for other suspected diseases and conditions ruled out (principal); N32.89 Other specified disorders of bladder; Z85.46 Personal history of malignant neoplasm of prostate; C61 Malignant neoplasm of prostate; R10.84 Generalized abdominal pain
CPT/HCPCS: 84153; 80053; 82565; 84520; 87070; 87205; 74177; 36415; Q9967

== ENCOUNTER → 2018-08-29 | Outpatient (CLI) | payer MEDICARE ==
--- NOTE | 2018-08-29 11:14 | MR ---
EXAMINATION TYPE: MR brain wo/w con DATE OF EXAM: 08/29/2018 COMPARISON: NONE HISTORY: Dizziness / Left Arm Weakness. History of prostate cancer. TECHNIQUE: Multiplanar, multisequence images of the brain and brainstem is performed without and with IV contras t, utilizing 8.5 mL intravenous Gadavist . FINDINGS: Diffusion weighted images demonstrate no evidence of a recent infarct or other diffusion ab normality. There is no worrisome extra-axial fluid collection. The ventricular system and cisternal spaces are normal in size and appearance. The brain volume is age appropriate. Scattered foci of T2 intensity are seen throughout the white matter bilaterally. Midline structures demonstrate normal morphology. The craniocervical junction appears within normal limits. Post contrast images demonstrate no suspicious abnormal enhancement or enhancing intraparenc hymal masses. The dural venous sinuses appear patent. Mild mucosal thickening involving ethmoid sinus es bilaterally. Fluid signal completely fills left sphenoid sinus. Paranasal sinuses are clear. Globe s are intact. No suspicious fluid signal bilateral mastoid air cells. IMPRESSION: 1. No evidence of a recent infarct. 2. No suspicious enhancing masses to suggest metastatic disease. 3. Mild chronic small vessel ischemic change. Possible acute left sided sphenoid sinusitis, correlate clinically.
== END | disposition home or self-care (01) ==
LOC: RADMRIMAIN 10:04
PROVIDERS: ATTEND Internal Medicine Hematology & Oncology
DX: I67.82 Cerebral ischemia (principal); M62.81 Muscle weakness (generalized); C61 Malignant neoplasm of prostate
CPT/HCPCS: 70553; A9585

== ENCOUNTER 2018-09-16 11:27 | Emergency (ER) | payer MEDICARE ==
[2018-09-16 11:53] VITALS: RESP 18
[2018-09-16] MEDS ORDERED: HYDROcodone/APAP 5-325MG 1 EACH TAB PO STA (12:25)
--- NOTE | 2018-09-16 12:41 | ED ---
Neck Injury/Pain HPI - General Chief Complaint: Neck Pain/Injury Stated Complaint: Neck Pain, Numbness on L SIde, tingling Time Seen by Provider: 09/16/18 12:03 Source: RN notes reviewed Mode of arrival: ambulatory Limitations: no limitations - History of Present Illness Initial Comments: This 67-year-old male presents emergency Department chief complaint of neck pain. Patient states her last few days she's had extreme neck discomfort. Patient did have some pain last week and which she saw his primary care physician was placed on Flexeril and ibuprofen 800. Patient is initially helped but states is not helping anymore. Patient does admit that over the last 6-8 weeks he's had symptoms on his left side including his left leg, left arm and some facial numbness and tingling. Patient states that he saw his oncologist who sent him for an MRI of his brain to rule out CVA which was negative. Patient states that he then was referred to Dr. Nelson who felt this may be related to a pinched nerve in his neck he does admit that he's had a prior fusion of his neck. Patient states the pain is in his lower cervical and upper thoracic. Patient states that he does have prostate cancer with metastasis to bony areas. He states is not exactly sure where these lesions are. Patient denied any focal weakness he states his left side just feels off which has been ongoing for several weeks. Patient denies current chest pain, palpitations, blurred vision. - Related Data Home Medications Medication Instructions Recorded Confirmed Aspirin EC [Ecotrin Low Dose] 81 mg PO DAILY 05/10/17 09/16/18 Calcium Carbonate/Vitamin D3 1 tab PO BID 05/10/17 09/16/18 [Calcium 500-Vit D3 200 Tablet] Niacin 250 mg PO HS 05/10/17 09/16/18 Telmisartan 80 mg PO QAM 05/10/17 09/16/18 Esomeprazole Magnesium [NexIUM] 40 mg PO DAILY 05/12/18 09/16/18 Ranitidine HCl [Zantac] 150 mg PO HS 05/12/18 09/16/18 Acetaminophen [Tylenol 8 Hour] 650 mg PO BID PRN 05/13/18 09/16/18 Amitriptyline HCl [Elavil] 25 mg PO HS 09/16/18 09/16/18 Cyclobenzaprine [Flexeril] 10 mg PO TID PRN 09/16/18 09/16/18 Ezetimibe [Zetia] 10 mg PO DAILY 09/16/18 09/16/18 Ibuprofen [Motrin] 800 mg PO TID PRN 09/16/18 09/16/18 Previous Rx's Medication Instructions Recorded HYDROcodone/APAP 7.5-325MG [[place] 1 tab PO Q6HR PRN 3 Days #12 tab 09/16/18 7.5-325] Allergies Allergy/AdvReac Type Severity Reaction Status Date / Time No Known Allergies Allergy Verified 09/16/18 12:37 Review of Systems ROS Statement: Those systems with pertinent positive or pertinent negative responses have been documented in the HPI. ROS Other: All systems not noted in ROS Statement are negative. Past Medical History Past Medical History: Cancer, GERD/Reflux, Hyperlipidemia, Hypertension, Prostate Disorder Additional Past Medical History / Comment(s): 2011 radiation for prostate CA,Mar 2018 steroids, prostate cancer with mets to spine, rib, hip History of Any Multi-Drug Resistant Organisms: None Reported Past Surgical History: Appendectomy, Cholecystectomy, Hernia Repair, Orthopedic Surgery Additional Past Surgical History / Comment(s): neck surgery-cervicle repair, Inguinal hernia repair, routine colonoscopies Past Anesthesia/Blood Transfusion Reactions: No Reported Reaction Additional Past Anesthesia/Blood Transfusion Reaction / Comment(s): no hx blood transfusion Past Psychological History: Anxiety, Panic Disorder Smoking Status: Former smoker Past Alcohol Use History: None Reported Past Drug Use History: None Reported - Past Family History Mother Additional Family Medical History / Comment(s): Heart cath minimal disease General Exam Limitations: no limitations General appearance: alert, in no apparent distress Head exam: Present: atraumatic, normocephalic, normal inspection Eye exam: Present: normal appearance, PERRL, EOMI. Absent: scleral icterus, conjunctival injection, periorbital swelling ENT exam: Present: normal exam, normal oropharynx, mucous membranes moist, TM's normal bilaterally Neck exam: Present: normal inspection, tenderness, full ROM. Absent: meningis mus, lymphadenopathy Respiratory exam: Present: normal lung sounds bilaterally. Absent: respiratory distress, wheezes, rales, rhonchi, stridor Cardiovascular Exam: Present: regular rate, normal rhythm, normal heart sounds. Absent: systolic murmur, diastolic murmur, rubs, gallop, clicks GI/Abdominal exam: Present: soft, normal bowel sounds. Absent: distended, tenderness, guarding, rebound, rigid Back exam: Present: normal inspection, full ROM, tenderness, vertebral tenderness. Absent: paraspinal tenderness Neurological exam: Present: alert, oriented X3, CN II-XII intact, reflexes normal, other (Finger to nose intact bilaterally though patient is noticeably slower on the left). Absent: motor sensory deficit Skin exam: Present: warm, dry, intact, normal color. Absent: rash Course Vital Signs 09/16/18 11:47 Temperature 97.9 F Pulse Rate 98 Respiratory 18 Rate Blood Pressure 140/87 O2 Sat by Pulse 97 Oximetry Medical Decision Making - Medical Decision Making 67-year-old male present emergency from chief complaint of neck pain. Patient had CT of the neck and thoracic spine there is evidence of metastatic lesion around rib #5. Nothing containing of the cervical spine. Patient does have disc bulging at C4. Patient does have some mild radicular symptoms. Patient also complained of left-sided leg and facial symptoms which have been going on for greater than 6 weeks and has been evaluated by neurology. Patient will be discharged with follow-up patient will be provided pain medication return parameters were discussed. Disposition Clinical Impression: Neck pain, Cervical disc herniation Disposition: HOME SELF-CARE Condition: Stable Instructions (If sedation given, give patient instructions): Cervical Radiculopathy (ED), Acute Neck Pain (ED) Additional Instructions: Please return to the Emergency Department if symptoms worsen or any other concerns. Prescriptions: HYDROcodone/APAP 7.5-325MG [[place] 7.5-325] 1 tab PO Q6HR PRN 3 Days #12 tab PRN Reason: Pain Is patient prescribed a controlled substance at d/c from ED?: Yes When asked, does pt state using other controlled substances?: No If prescribed controlled substance>3 days was MAPS reviewed?: Prescribed <3 Days If opioid is for acute pain is fill amount 7 days or less?: Yes If Rx opioid, was Start Talking consent form obtained?: Yes Referrals: Jose Carlos Brownlee MD [Primary Care Provider] - 1-2 days Time of Disposition: 14:02
--- NOTE | 2018-09-16 13:42 | CT ---
EXAMINATION TYPE: CT cervical spine wo con DATE OF EXAM: 09/16/2018 COMPARISON: NONE HISTORY: Neck pain. Known osseous metastasis from primary prostate carcinoma CT DLP: 367 mGycm. Automated Exposure Control for Dose Reduction was Utilized. TECHNIQUE: CT scan of the cervical spine is obtained without contrast, axial images are obtained, sa gittal and coronal reformatted images are also reviewed. FINDINGS: No acute fracture or malalignment is seen of the cervical spine. Facets also remain aligned with multilevel facet arthropathy. Skull base maintains normal alignment. Degenerative narrowing of the atlantodental interval is seen. There is anterior cervical fusion from the C5 or C7 vertebral lev els with fusion of the vertebral bodies and surgical spacer present. Prior well corticated healed fra cture deformity of the spinous process of C7 and dystrophic calcifications of the soft tissues the ne ck from prior injury. Spinal canal is limited on CT. C2-C3: Uncovertebral hypertrophy and facet arthropathy creating moderate right neural foraminal narro wing and mild left neural foraminal narrowing. Spinal canal is grossly patent. C3-C4: Uncovertebral hypertrophy and facet arthropathy creates severe left and moderate right neural foraminal narrowing. Spinal canal is grossly patent. C4-C5: Uncovertebral hypertrophy and facet arthropathy creates severe right and moderate left neural foraminal narrowing. There is at least a broad-based disc bulge creating mild spinal canal stenosis. C6-T1: Postsurgical changes seen with no gross spinal canal stenosis. IMPRESSION: 1. No acute fracture or malalignment evident in the cervical spine. 2. Anterior cervical fusion device at C5-C7 with osseous fusion of the vertebral bodies at these leve ls. 3. Spinal canal is limited on CT, however there appears to be mild spinal canal stenosis at C4-C5 fro m at least a broad-based disc bulge. Multilevel variable degree neural foraminal narrowing is also se en as detailed above.
--- NOTE | 2018-09-16 13:42 | CT ---
EXAMINATION TYPE: CT thoracic spine wo con DATE OF EXAM: 09/16/2018 COMPARISON: Cervical spine CT same date HISTORY: Numbness Lt arm CT DLP: 1001 mGycm Automated exposure control for dose reduction was used. Helical imaging through the thoracic spine. C oronal and sagittal reconstructions. FINDINGS: Thoracic vertebral bodies show preserved height and alignment. There is multilevel spondylosis presen t. No evident spinal stenosis or significant foraminal encroachment. No evident disc herniation. Ther e is sclerosis involving the posterior right fifth rib centrally. Postop changes are noted in the cer vical spine. IMPRESSION: FINDINGS COMPATIBLE WITH PATIENT'S HISTORY OF METASTATIC DISEASE. DEGENERATIVE DISC DISEASE. POSTOP C HANGES.
[2018-09-16 14:11] VITALS: BP 127/97; PULSE 82; TEMP 97.8
== END 2018-09-16 14:14 | disposition home or self-care (01) ==
LOC: EC 11:27
DX: M50.20 Other cervical disc displacement, unspecified cervical region (principal); M50.80 Other cervical disc disorders, unspecified cervical region; C79.51 Secondary malignant neoplasm of bone; Z85.46 Personal history of malignant neoplasm of prostate; K21.9 Gastro-esophageal reflux disease without esophagitis; E78.5 Hyperlipidemia, unspecified; I10 Essential (primary) hypertension; F41.0 Panic disorder [episodic paroxysmal anxiety]; Z87.891 Personal history of nicotine dependence; Z79.82 Long term (current) use of aspirin; Z79.899 Other long term (current) drug therapy
CPT/HCPCS: 72125; 72128; 99283

== ENCOUNTER → 2018-09-23 | Outpatient (CLI) | payer MEDICARE ==
--- NOTE | 2018-09-24 08:34 | US ---
EXAMINATION TYPE: US carotid duplex BILAT DATE OF EXAM: 09/23/2018 COMPARISON: NONE CLINICAL HISTORY: R20.2 PARASTHESIA,R29.896 WEAKNESS OF LT ARM. Weakness left arm EXAM MEASUREMENTS: RIGHT: Peak Systolic Velocity (PSV) cm/sec ----- Right CCA: 66.0 ----- Right ICA: 85.3 ----- Right ECA: 82.5 ICA/CCA ratio: 1.3 RIGHT: End Diastole cm/sec ----- Right CCA: 23.2 ----- Right ICA: 29.2 ----- Right ECA: 24.1 LEFT: Peak Systolic Velocity (PSV) cm/sec ----- Left CCA: 63.8 ----- Left ICA: 87.8 ----- Left ECA: 57.2 ICA/CCA ratio: 1.4 LEFT: End Diastole cm/sec ----- Left CCA: 26.8 ----- Left ICA: 42.4 ----- Left ECA: 14.5 VERTEBRALS (direction of flow): Right Vertebral: Antegrade Left Vertebral: Antegrade Rhythm: Normal Mild plaque bilateral bifurcations. No evidence of significant stenosis IMPRESSION: Mild degree of grayscale atheromatous plaquing with no sonographically evident hemodynam ically significant stenosis within either visualized carotid arterial system. Criteria for Assigning % of Stenosis / Diameter reduction (Estimation based on the indirect measurements of the internal carotid artery velocities (ICA PSV). 1. Normal (no stenosis)=ICA PSV < 125 cm/s: ratio < 2.0: ICA EDV<40 cm/s. 2. Less than 50% stenosis=ICA PSV < 125 cm/s: ratio < 2.0: ICA EDV<40 cm/s. 3. 50 to 69% stenosis=ICA PSV of 125 to 230 cm/s: ration 2.0 ? 4.0: ICA EDV 40-100 cm/s. 4. Greater than 70% stenosis to near occlusion= ICA PSV > 230 cm/s: ratio > 4.0: ICA EDV > 100 cm/s. 5. Near occlusion= ICA PSV velocities may be low or undetectable: variable ratio and ICA EDV. 6. Total occlusion=unable to detect flow.
== END | disposition home or self-care (01) ==
LOC: RADUSWWP 15:29 → RADMRIMAIN 16:20
PROVIDERS: ATTEND Psychiatry & Neurology Neurology
DX: I65.23 Occlusion and stenosis of bilateral carotid arteries (principal)
CPT/HCPCS: 72156; 93880

== ENCOUNTER → 2018-10-06 | Outpatient (CLI) | payer MEDICARE ==
--- NOTE | 2018-10-06 10:31 | MR ---
EXAMINATION TYPE: MR cervical spine wo/w con DATE OF EXAM: 10/06/2018 COMPARISON: CT cervical spine 09/16/2018 HISTORY: Paresthesias, Weakness of left arm TECHNIQUE: Multiplanar, multisequence images of the cervical spine were acquired utilizing 8.5 mL intravenous Ga davist gadolinium contrast. Diffusion weighted imaging was performed. C2-C3: Uncovertebral joint hypertrophy, facet arthropathy causes foraminal encroachment. There is no evident disc herniation or significant spinal stenosis. C3-C4: Bilateral foraminal encroachment is again noted due to uncovertebral joint hypertrophy and fac et arthropathy. Minimal posterior broad-based disc bulge, extension endplate disc complex extends tow ards the left neural foramen and causes anterolateral mass effect on the thecal sac, no significant c entral stenosis. C4-C5: Uncovertebral joint hypertrophy and facet arthropathy results in foraminal encroachment bilate rally likely greater on the right. Posterior extension of endplate disc complex causes mild anterior mass effect on the thecal sac, only mild central stenosis. C5-C6: Bilateral foraminal encroachment is present. Posterior hard disc causes mild anterior mass eff ect on the thecal sac. No significant central stenosis. C6-C7: Bilateral foraminal encroachment is present. No significant central stenosis. Posterior extens ion of heart disc results in some mild anterior mass effect on the thecal sac. No significant central stenosis. C7-T1: Possibly some mild foraminal encroachment, no evident disc herniation or significant central s tenosis. Cervical segments are intact. There is normal alignment, patient is status post anterior cervical fu abisai and discectomy C5-6-7. Susceptibility artifact due to patient's hardware is present. Cervical s german cord is of normal signal. Craniovertebral junction relationships are within normal limits. No abnormal enhancement following contrast administration. IMPRESSION: No recurrent disc herniation. Multilevel foraminal encroachment. Findings stable compared to patient' s CT scan.
== END | disposition home or self-care (01) ==
LOC: RADMRIMAIN 08:30
PROVIDERS: ATTEND Psychiatry & Neurology Neurology
DX: R29.898 Other symptoms and signs involving the musculoskeletal system (principal); R20.2 Paresthesia of skin
CPT/HCPCS: 72156; A9585

== ENCOUNTER 2019-07-24 10:53 | Inpatient (IN) | payer MEDICARE ==
[2019-07-24] MEDS ORDERED: HEPARIN SODIUM,PORCINE 5,000 UNIT/ML 1 ML VIAL IV PRN (10:59)
[2019-07-24] MEDS: HEPARIN SOD,PORK IN 0.45% NACL 25,000 UNIT in 0.45% NACL 1 250ML.BAG IV SCH (11:14)
--- NOTE | 2019-07-24 12:08 | ED ---
General Adult HPI - General Chief complaint: Recheck/Abnormal Lab/Rx Stated complaint: Pulmonary embolism Time Seen by Provider: 07/24/19 10:58 Source: EMS Mode of arrival: EMS Limitations: physical limitation - History of Present Illness Initial comments: Dictation was produced using [employer] dictation software. please excuse any grammatical, word or spelling errors. This patient was cared for during a federal and state declared state of emergency secondary to Covid 19 Chief Complaint: 68-year-old male transferred from [facility] for pulmonary embolus. History of Present Illness: Patient is 68-year-old male who has past medical history of prostate cancer. Patient presents via EMS from [facility]. Patient complaining of right-sided back pain that started earlier this morning. Symptoms started acutely today. He complained of some mild shortness of breath. Denies any cough. No constitutional symptoms. According to [place] emergency doctor patient had no elevation in troponin. He had stable blood pressures, and stable oxygen saturations. The ROS documented in this emergency department record has been reviewed and confirmed by me. Those systems with pertinent positive or negative responses have been documented in the HPI. All other systems are other negative and/or noncontributory. PHYSICAL EXAM: General Impression: Alert and oriented x3, not in acute distress HEENT: Normocephalic atraumatic, extra-ocular movements intact, pupils equal and reactive to light bilaterally, mucous membranes moist. Cardiovascular: Heart regular rate and rhythm Chest: Able to complete full sentences, no retractions, no tachypnea Abdomen: abdomen soft, non-tender, non-distended, no organomegaly Musculoskeletal: Pulses present and equal in all extremities, no peripheral edema Motor: no focal deficits noted Neurological: CN II-XII grossly intact, no focal motor or sensory deficits noted Skin: Intact with no visualized rashes Psych: Normal affect and mood ED course: 68-year-old male presents with pulmonary embolus. Chart review was performed. Patient had benign labs. He did have a CT that suggested right heart strain. He had multiple pulmonary emboli to the right pulmonary arterial system. Labs are unremarkable. Patient hemodynamically stable. As upon arrival shows findings within acceptable limits. Patient normotensive and not hypoxic. Patient case was discussed with Dr. Abdalla who weighs patient stable for the floor. Patient continued on heparin. Discussed patient case with Dr. Watson who iss willing to accept patient's care EKG interpretation: Ventricular rate 81, sinus rhythm, KS interval 250, QRS 104, QTC 411. No KS prolongation, no QTC prolongation, no ST or T-wave changes noted. EKG compared to 05/11/2017 showing no changes. Overall, this EKG is unremarkable - Related Data Home Medications Medication Instructions Recorded Confirmed Aspirin EC [Ecotrin Low Dose] 81 mg PO DAILY 05/10/17 09/16/18 Calcium Carbonate/Vitamin D3 1 tab PO BID 05/10/17 09/16/18 [Calcium 500-Vit D3 200 Tablet] Niacin 250 mg PO HS 05/10/17 09/16/18 Telmisartan 80 mg PO QAM 05/10/17 09/16/18 Esomeprazole Magnesium [NexIUM] 40 mg PO DAILY 05/12/18 09/16/18 Ranitidine HCl [Zantac] 150 mg PO HS 05/12/18 09/16/18 Acetaminophen [Tylenol 8 Hour] 650 mg PO BID PRN 05/13/18 09/16/18 Amitriptyline HCl [Elavil] 25 mg PO HS 09/16/18 09/16/18 Cyclobenzaprine [Flexeril] 10 mg PO TID PRN 09/16/18 09/16/18 Ezetimibe [Zetia] 10 mg PO DAILY 09/16/18 09/16/18 Ibuprofen [Motrin] 800 mg PO TID PRN 09/16/18 09/16/18 Previous Rx's Medication Instructions Recorded HYDROcodone/APAP 7.5-325MG [[place] 1 tab PO Q6HR PRN 3 Days #12 tab 09/16/18 7.5-325] Allergies Allergy/AdvReac Type Severity Reaction Status Date / Time No Known Allergies Allergy Verified 09/16/18 12:37 Review of Systems ROS Statement: Those systems with pertinent positive or pertinent negative responses have been documented in the HPI. ROS Other: All systems not noted in ROS Statement are negative. Past Medical History Past Medical History: Cancer, GERD/Reflux, Hyperlipidemia, Hypertension, Prostate Disorder Additional Past Medical History / Comment(s): 2011 radiation for prostate CA,Mar 2018 steroids History of Any Multi-Drug Resistant Organisms: None Reported Past Surgical History: Appendectomy, Cholecystectomy, Hernia Repair, Orthopedic Surgery Additional Past Surgical History / Comment(s): neck surgery-cervicle repair, Inguinal hernia repair, routine colonoscopies Past Anesthesia/Blood Transfusion Reactions: No Reported Reaction Additional Past Anesthesia/Blood Transfusion Reaction / Comment(s): no hx blood transfusion Past Psychological History: Anxiety, Panic Disorder Past Alcohol Use History: Rare - Past Family History Mother Additional Family Medical History / Comment(s): Heart cath minimal disease General Exam Limitations: physical limitation Course Vital Signs 07/24/19 07/24/19 07/24/19 10:54 11:22 11:24 Temperature 97.8 F Pulse Rate 85 81 Respiratory 16 16 16 Rate Blood Pressure 104/73 104/73 O2 Sat by Pulse 93 L 92 L Oximetry Medical Decision Making - Lab Data Lab Results 07/24/19 Range/Units 11:07 Troponin I <0.012 (0.000-0.034) ng/mL Disposition Clinical Impression: Pulmonary emboli Disposition: ADMITTED IP TO THIS [facility] Condition: Fair Referrals: Jose Carlos Brownlee MD [Primary Care Provider] - 1-2 days Decision Time: 12:12
[2019-07-24] MEDS ORDERED: NALOXONE 0.4 MG/ML 1 ML VIAL IV PRN (12:09)
[2019-07-24] MEDS ORDERED: ONDANSETRON 4 MG/2 ML VIAL IVP PRN (12:09)
[2019-07-24] MEDS: SODIUM CHLORIDE 0.9% 1,000 ML IV SCH (12:47)
--- NOTE | 2019-07-24 13:43 | P.CNPUL ---
History of Present Illness Consult date: 07/24/19 Reason for consult: chest pain History of present illness: A 68-year-old male patient was transferred from [facility] because of pulmonary embolism. This patient is known to have ALS diagnosed back in September 2018 and his condition is been progressively getting worse where the patient become essentially bedridden and wheelchair bound. The patient has lost his ability to ambulate. He is swallowing has been progressively getting weak and he was scheduled to have a PEG tube insertion at [facility] in 2 weeks time. He has not aspirated. He also has metastatic prostate cancer for which she is taking Lupron injections. He has metastases to his bone. The patient eloped acute chest pain and shortness of breath a few days duration and for that reason his took him to [facility] where he underwent a CT angiogram and the patient was found to have evidence of pulmonary embolism. There was multiple right-sided pulmonary emboli mainly in the right lower lobe pulmonary artery branch in addition to some right ventricular strain on the CAT scan. There was a small right-sided pleural effusion and bibasilar scarring/atelectasis in addition to superior T9 endplate deformity that was nonacute. The patient's white second was at 8.3 with a hemoglobin of 12.7 and a platelet count of 10 and 43. His BUN 23 with a creatinine of 0.7. Serum bicarb is 25 with a sodium of 138. The patient was admitted to the hospital and currently is on anticoagulation. He is still having pleurisy mainly along the right side of the chest. He is a week cough. No calf pain. No swelling in lower extremities. No reported aspiration for now. Review of Systems Constitutional: Reports weakness Eyes: denies as per HPI, denies blurred vision, denies bulging eye, denies decreased vision, denies diplopia, denies discharge, denies dry eye, denies irritation, denies itching, denies pain, denies photophobia, denies loss of peripheral vision, denies loss of vision, denies tunnel vision/blind spots Ears: deny: decreased hearing, ear discharge, earache, tinnitus Ears, nose, mouth and throat: Denies headache, Denies sore throat Breasts: absent: as per HPI, gynecomastia Cardiovascular: Reports dyspnea on exertion, Reports shortness of breath Respiratory: Reports cough, Reports pain on inspiration, Reports pleurisy Gastrointestinal: Reports as per HPI Genitourinary: Reports as per HPI Musculoskeletal: Reports arm numbness/tingling, Reports atrophy, Reports gait dysfunction, Reports muscle weakness Musculoskeletal: absent: ankle pain, ankle stiffness, ankle swelling Integumentary: Reports as per HPI Neurological: Reports as per HPI, Reports change in speech, Reports gait dysfunction, Reports lack of coordination, Reports motor disturbance, Reports numbness, Reports sensory deficit, Reports weakness Psychiatric: Reports as per HPI Endocrine: Reports as per HPI Hematologic/Lymphatic: Reports as per HPI Allergic/Immunologic: Reports as per HPI Past Medical History Past Medical History: Cancer, GERD/Reflux, Hyperlipidemia, Hypertension, Prostate Disorder Additional Past Medical History / Comment(s): Amyotrophic lateral sclerosis diagnosed in 2019, currently utilizing a noninvasive positive pressure ventilator and he is scheduled to have her PEG tube insertion, metastatic prostate cancer with skeletal metastases. History of Any Multi-Drug Resistant Organisms: None Reported Past Surgical History: Appendectomy, Cholecystectomy, Hernia Repair, Orthopedic Surgery Additional Past Surgical History / Comment(s): neck surgery-cervicle repair, Inguinal hernia repair, routine colonoscopies Past Anesthesia/Blood Transfusion Reactions: No Reported Reaction Additional Past Anesthesia/Blood Transfusion Reaction / Comment(s): no hx blood transfusion Past Psychological History: Anxiety, Panic Disorder Past Alcohol Use History: Rare - Past Family History Mother Additional Family Medical History / Comment(s): Heart cath minimal disease Medications and Allergies Home Medications Medication Instructions Recorded Confirmed Type Aspirin EC [Ecotrin Low Dose] 81 mg PO DAILY 05/10/17 07/24/19 History Niacin 250 mg PO HS 05/10/17 07/24/19 History Telmisartan 80 mg PO QAM 05/10/17 07/24/19 History Esomeprazole Magnesium [NexIUM] 40 mg PO DAILY 05/12/18 07/24/19 History Amitriptyline HCl [Elavil] 25 mg PO HS 09/16/18 07/24/19 History Ezetimibe [Zetia] 10 mg PO HS 09/16/18 07/24/19 History Baclofen 5 mg PO TID 07/24/19 07/24/19 History Calcium Carbonate [Calcium] 600 mg PO BID 07/24/19 07/24/19 History Cholecalciferol [Vitamin D3 (25 2,000 unit PO DAILY 07/24/19 07/24/19 History Mcg = 1000 Iu)] DULoxetine HCL [Cymbalta] 60 mg PO DAILY 07/24/19 07/24/19 History Famotidine [Pepcid] 40 mg PO HS 07/24/19 07/24/19 History Fenofibrate Nanocrystallized 145 mg PO DAILY 07/24/19 07/24/19 History [Fenofibrate] Lupron Unknown Strength 1 dose IM Q90D 07/24/19 07/24/19 History Riluzole [Rilutek] 50 mg PO BID 07/24/19 07/24/19 History Xgeva (Unknown Strength) 1 dose SQ Q90D 07/24/19 07/24/19 History rOPINIRole HCL [Requip] 0.5 mg PO HS PRN 07/24/19 07/24/19 History Allergies Allergy/AdvReac Type Severity Reaction Status Date / Time No Known Allergies Allergy Verified 07/24/19 12:53 Physical Exam Vitals: Vital Signs Temp Pulse Resp BP Pulse Ox 07/24/19 12:48 86 16 95/64 91 L 07/24/19 11:24 16 07/24/19 11:22 81 16 104/73 92 L 07/24/19 10:54 97.8 F 85 16 104/73 93 L Intake and Output 07/23/19 07/24/19 07/24/19 22:59 06:59 14:59 Other: Weight 78.018 kg The patient is calm comfortable likely distress laying comfortably in bed. He has a soft voice. He has a weak cough. He has obvious fasciculations of the mu scles of the upper and lower extremities and sometimes the mouth and the tongue. Head exam was generally normal. There was no scleral icterus or corneal arcus. Mucous membranes were moist. Neck was supple and without jugular venous distension, thyromegaly, or carotid bruits. Carotids were easily palpable bilaterally. There was no adenopathy. Lungs sounds are diminished bilaterally especially in the lung bases and the patient is a weak cough. He has pleurisy and is unable to fully expand his lungs. Cardiac exam revealed the PMI to be normally situated and sized. The rhythm was regular and no extrasystoles were noted during several minutes of auscultation. The first and second heart sounds were normal and physiologic splitting of the second heart sound was noted. There were no murmurs, rubs, clicks, or gallops. Abdominal exam revealed normal bowel sounds. The abdomen was soft, non-tender, and without masses, organomegaly, or appreciable enlargement of the abdominal aorta. Examination of the extremities revealed easily palpable radial, femoral and pedal pulses. There was no cyanosis, clubbing or edema. Examination of the skin revealed no evidence of significant rashes, suspicious appearing nevi or other concerning lesions. Neurologically the patient has normal mentation. The patient has motor dysfunction and weakness in the upper and lower extremities and the patient has muscle atrophy and fasciculations. No rigidity. Results - Diagnostic Findings Chest x-ray: image reviewed Assessment and Plan Plan: 1 acute pulmonary embolism with secondary shortness of breath and pleurisy with some evidence of right ventricular strain based on CAT scan criteria. Echocardiogram is still pending for now. Meanwhile, this patient is bedridden secondary to is a less and he has metastatic prostate cancer on Lupron and both of these conditions are considered to be thrombogenic and considered to be risk factors for venous thrombolic disease. Currently on IV heparin. CAT scan of the chest was noted and the patient has a right-sided pulmonary embolism more so to the right lower lobe pulmonary artery branch. 2 shortness of breath secondary to above 3 pleurisy secondary to above 4 acute hypoxic respiratory failure secondary to above 5 ALS utilizing a noninvasive positive pressure ventilator overnight and was being considered for PEG tube insertion in 2 weeks time due to progressive loss in swallowing capacity. No reported aspiration. Diagnosis established in 2019 and the patient has been progressively getting worse. 6 metastatic prostate cancer 7 hypertension 8 hyperlipidemia Plan IV heparin Doppler of the lower extremity Echo to assess LV function with ventricular stress related to pulmonary embolism. Hemodynamically patient is doing well without any significant hypotension or tachycardia. We'll likely need a long-term anticoagulant such as a NOAC agents. The patient has multiple risk factors and the patient is sedentary secondary to ALS and he will need long-term anticoagulation. Overall prognosis for secondary to his underlying ALS. We'll try to avoid narcotic medications as may suppress his breathing. We'll recheck benefits and his pain and the source of depression. He'll be provided incentive spirometer. Continue noninvasive positive pressure ventilation overnight and the patient will be welcome to bring his own machine from home if possible. Keep oxygen for now to maintain a saturation above 90% and titrate flow Admit this patient to the floor and will continue to follow.
--- NOTE | 2019-07-24 16:34 | P.HPIM ---
History of Present Illness 68-year-old male was sent in from [place] because of CT angios showing pulmonary embolism patient has multiple right-sided pulmonary emboli. 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 Patient has metastatic prostate cancer for which patient is on Lupron injections as well. Patient was started on IV heparin. Patient is supposed to get a PEG tube because of his significant dysphagia from his primary lateral sclerosis in about a week. Since patient is going to be on anticoagulation after discussing with the patient I'm consulting speech therapy and the gastroneurology for PEG tube placement here possibly tomorrow and patient at that time will be resumed on Eliquis. For now we'll continue with the heparin. Review of Systems REVIEW OF SYSTEMS: CONSTITUTIONAL: No fever, no malaise, no fatigue. HEENT: No recent visual problems or hearing problems. Denied any sore throat. CARDIOVASCULAR: No orthopnea, PND, no palpitations, no syncope. PULMONARY: No shortness of breath, no cough, no hemoptysis. GASTROINTESTINAL: No diarrhea, no nausea, no vomiting, no abdominal pain. NEUROLOGICAL: No headaches, no weakness, no numbness. HEMATOLOGICAL: Denies any bleeding or petechiae. GENITOURINARY: Denies any burning micturition, frequency, or urgency. MUSCULOSKELETAL/RHEUMATOLOGICAL: Denies any joint pain, swelling, or any muscle pain. ENDOCRINE: Denies any polyuria or polydipsia. The rest of the 14-point review of systems is negative. Past Medical History Past Medical History: Cancer, GERD/Reflux, Hyperlipidemia, Hypertension, Prostate Disorder Additional Past Medical History / Comment(s): Amyotrophic lateral sclerosis diagnosed in 2019, currently utilizing a noninvasive positive pressure ventilator and he is scheduled to have her PEG tube insertion, metastatic prostate cancer with skeletal metastases. History of Any Multi-Drug Resistant Organisms: None Reported Past Surgical History: Appendectomy, Cholecystectomy, Hernia Repair, Orthopedic Surgery Additional Past Surgical History / Comment(s): neck surgery-cervicle repair, Inguinal hernia repair, routine colonoscopies Past Anesthesia/Blood Transfusion Reactions: No Reported Reaction Additional Past Anesthesia/Blood Transfusion Reaction / Comment(s): no hx blood transfusion Past Psychological History: Anxiety, Panic Disorder Past Alcohol Use History: Rare - Past Family History Mother Additional Family Medical History / Comment(s): Heart cath minimal disease Medications and Allergies Home Medications Medication Instructions Recorded Confirmed Type Aspirin EC [Ecotrin Low Dose] 81 mg PO DAILY 05/10/17 07/24/19 History Niacin 250 mg PO HS 05/10/17 07/24/19 History Telmisartan 80 mg PO QAM 05/10/17 07/24/19 History Esomeprazole Magnesium [NexIUM] 40 mg PO DAILY 05/12/18 07/24/19 History Amitriptyline HCl [Elavil] 25 mg PO HS 09/16/18 07/24/19 History Ezetimibe [Zetia] 10 mg PO HS 09/16/18 07/24/19 History Baclofen 5 mg PO TID 07/24/19 07/24/19 History Calcium Carbonate [Calcium] 600 mg PO BID 07/24/19 07/24/19 History Cholecalciferol [Vitamin D3 (25 2,000 unit PO DAILY 07/24/19 07/24/19 History Mcg = 1000 Iu)] DULoxetine HCL [Cymbalta] 60 mg PO DAILY 07/24/19 07/24/19 History Famotidine [Pepcid] 40 mg PO HS 07/24/19 07/24/19 History Fenofibrate Nanocrystallized 145 mg PO DAILY 07/24/19 07/24/19 History [Fenofibrate] Lupron Unknown Strength 1 dose IM Q90D 07/24/19 07/24/19 History Riluzole [Rilutek] 50 mg PO BID 07/24/19 07/24/19 History Xgeva (Unknown Strength) 1 dose SQ Q90D 07/24/19 07/24/19 History rOPINIRole HCL [Requip] 0.5 mg PO HS PRN 07/24/19 07/24/19 History Allergies Allergy/AdvReac Type Severity Reaction Status Date / Time No Known Allergies Allergy Verified 07/24/19 12:53 Physical Exam Vitals: Vital Signs Temp Pulse Resp BP Pulse Ox 07/24/19 12:48 86 16 95/64 91 L 07/24/19 11:24 16 07/24/19 11:22 81 16 104/73 92 L 07/24/19 10:54 97.8 F 85 16 104/73 93 L Intake and Output 07/24/19 07/24/1907/23/20 06:59 14:59 22:59 Other: Weight 78.018 kg PHYSICAL EXAMINATION: GENERAL: The patient is alert and oriented x3, not in any acute distress. Well developed, well nourished. HEENT: Pupils are round and equally reacting to light. EOMI. No scleral icterus. No conjunctival pallor. Normocephalic, atraumatic. No pharyngeal erythema. No thyromegaly. CARDIOVASCULAR: S1 and S2 present. No murmurs, rubs, or gallops. PULMONARY: Chest is clear to auscultation, no wheezing or crackles. ABDOMEN: Soft, nontender, nondistended, normoactive bowel sounds. No palpable organomegaly. MUSCULOSKELETAL: No joint swelling or deformity. EXTREMITIES: No cyanosis, clubbing. NEUROLOGICAL: She does have significant weakness in both bilateral upper limbs and lower limbs along with the motor speech difficulties there is some swelling of both upper extremities SKIN: No rashes. Assessment and Plan Plan: - acute pulmonary embolism with pleurisy and shortness of breath and some mild right went to strain on the CAT scan. Patient is on IV heparin which will be continued. 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 possibility of PEG tube placement because of which patient will be started on will not be started on any oral anticoagulation yet -Acute hypoxic respiratory failure secondary to pulmonary embolism -Amyotropic lateral sclerosis patient is on Rilizole and follows up for any was to [place] -Hypertension patient is presently hypotensive hold off on antidepressant medications continue with IV fluids -Depression -Hyperlipidemia -Metastatic e prostate cancer on Lupron which will be continued -Generalized weakness from AML patient still wanted to go back home for now patient's takes care of him at home
[2019-07-24] MEDS: BACLOFEN 10 MG TAB PO SCH ×2 (16:49→22:13)
[2019-07-24] MEDS: FAMOTIDINE 20 MG TAB PO SCH (22:12)
[2019-07-24] MEDS: NON FORMULARY DRUG (Riluzole [Rilutek] 50 MG) PO SCH (22:17)
[2019-07-24] MEDS: EZETIMIBE 10 MG TAB PO SCH (22:17)
[2019-07-24] MEDS: AMITRIPTYLINE HCL 25 MG TAB PO SCH (22:17)
[2019-07-25] MEDS: MORPHINE SULFATE 4 MG/ML SYRINGE IV PRN ×2 (00:58→19:12)
[2019-07-25 02:57] LABS: HGB 11.1 gm/dL (13.0-17.5); RBC 3.85 m/uL (4.30-5.90); WBC 9.1 k/uL (3.8-10.6)
[2019-07-25 02:58] LABS: HCT 35.3 % (39.0-53.0); MCH 28.7 pg (25.0-35.0); MCHC 31.4 g/dL (31.0-37.0); MCV 91.5 fL (80.0-100.0); Mean Platelet Volume 6.9; Platelet Count 306 k/uL (150-450); RDW 12.9 % (11.5-15.5)
[2019-07-25 03:49] LABS: ALT 19 U/L (4-49); AST 23 U/L (17-59); African American GFR (CKD) >90 (>60 ml/min/1.73 sqM); Albumin 3.6 g/dL (3.5-5.0); Alkaline Phosphatase 56 U/L (38-126); Anion Gap 7 mmol/L; Blood Urea Nitrogen 18 mg/dL (9-20); Calcium 8.8 mg/dL (8.4-10.2); Carbon Dioxide 25 mmol/L (22-30); Chloride 103 mmol/L (98-107); Glucose 109 mg/dL (74-99); Non-African American GFR(CKD) >90 (>60 ml/min/1.73 sqM); Potassium 3.8 mmol/L (3.5-5.1); Sodium 135 mmol/L (137-145); Total Bilirubin 0.4 mg/dL (0.2-1.3); Total Protein 6.3 g/dL (6.3-8.2)
[2019-07-25] MEDS: ACETAMINOPHEN TAB 325 MG TAB PO PRN (04:22)
[2019-07-25] MEDS: HEPARIN SOD,PORK IN 0.45% NACL 25,000 UNIT in 0.45% NACL 1 250ML.BAG IV SCH ×2 (04:57→23:15)
[2019-07-25] MEDS ORDERED: PANTOPRAZOLE 40 MG/10 ML VIAL IV SCH (09:00)
[2019-07-25] MEDS: ASPIRIN 81 MG PO SCH (09:25)
[2019-07-25] MEDS: DULoxetine HCL 60 MG CAPSULE.DR PO SCH (09:25)
[2019-07-25] MEDS: BACLOFEN 10 MG TAB PO SCH ×3 (09:25→20:32)
--- NOTE | 2019-07-25 12:09 | P.PN ---
Subjective Progress Note Date: 07/25/19 Principal diagnosis: Chest pain A 68-year-old male patient was transferred from [facility] because of pulmonary embolism. This patient is known to have ALS diagnosed back in September 2018 and his condition is been progressively getting worse where the patient become essentially bedridden and wheelchair bound. The patient has lost his ability to ambulate. He is swallowing has been progressively getting weak and he was scheduled to have a PEG tube insertion at [facility] in 2 weeks time. He has not aspirated. He also has metastatic prostate cancer for which she is taking Lupron injections. He has metastases to his bone. The patient eloped acute chest pain and shortness of breath a few days duration and for that reason his took him to [facility] where he underwent a CT angiogram and the patient was found to have evidence of pulmonary embolism. There was multiple right-sided pulmonary emboli mainly in the right lower lobe pulmonary artery branch in addition to some right ventricular strain on the CAT scan. There was a small right-sided pleural effusion and bibasilar scarring/atelectasis in addition to superior T9 endplate deformity that was nonacute. The patient's white second was at 8.3 with a hemoglobin of 12.7 and a platelet count of 10 and 43. His BUN 23 with a creatinine of 0.7. Serum bicarb is 25 with a sodium of 138. The patient was admitted to the hospital and currently is on anticoagulation. He is still having pleurisy mainly along the right side of the chest. He is a week cough. No calf pain. No swelling in lower extremities. No reported aspiration for now. The patient is seen today 07/25/2019 in follow-up on the selective care unit. He is currently awake and alert. Resting comfortably in bed. He is maintaining O2 saturations in the mid 90s on room air. He's been afebrile. Hemodynamically stable. White count 9.1. Hemoglobin 11.1. Sodium 135. Creatinine 0.63. He remains on a heparin drip. The plan is for possible PEG tube placement tomorrow. Objective - Vital Signs Vital signs: Vital Signs Temp 98.4 F 07/25/19 08:10 Pulse 90 07/25/19 11:30 Resp 16 07/25/19 11:30 BP 108/54 07/25/19 11:30 Pulse Ox 95 07/25/19 11:30 Intake & Output 07/24/19 07/25/19 07/25/19 18:59 06:59 18:59 Intake Total 234.989 200 Output Total 200 Balance 34.989 200 Weight 78.018 kg 81.5 kg Intake: Intake, IV Titration 234.989 Amount Heparin Sod,Pork in 0.45% 234.989 NaCl 25,000 unit In 0.45 % NaCl 1 250ml.bag @ 18 UNITS/KG/HR 14.043 mls/hr IV .[id number] COUNT INCLUDES THE [facility] Rx#: [id number] Oral 200 Output: Urine 200 Other: Voiding Method Urinal Urinal Urinal Diaper Diaper - Exam The patient is very pleasant 68-year-old gentleman, calm laying comfortably in bed. On room air. He has a soft voice. He has a weak cough. He has obvious fasciculations of the muscles of the upper and lower extremities and sometimes the mouth and the tongue. Head exam was generally normal. There was no scleral icterus or corneal arcus. Mucous membranes were moist. Neck was supple and without jugular venous distension, thyromegaly, or carotid bruits. Carotids were easily palpable bilaterally. There was no adenopathy. Lungs sounds are diminished bilaterally especially in the lung bases and the patient is a weak cough. He has pleurisy and is unable to fully expand his lungs. Cardiac exam revealed the PMI to be normally situated and sized. The rhythm was regular and no extrasystoles were noted during several minutes of auscultation. The first and second heart sounds were normal and physiologic splitting of the second heart sound was noted. There were no murmurs, rubs, clicks, or gallops. Abdominal exam revealed normal bowel sounds. The abdomen was soft, non-tender, and without masses, organomegaly, or appreciable enlargement of the abdominal aorta. Examination of the extremities revealed easily palpable radial, femoral and pedal pulses. There was no cyanosis, clubbing or edema. Examination of the skin revealed no evidence of significant rashes, suspicious appearing nevi or other concerning lesions. Neurologically the patient has normal mentation. The patient has motor dysfunction and weakness in the upper and lower extremities and the patient has muscle atrophy and fasciculations. No rigidity. - Labs CBC & Chem 7: 07/25/19 02:09 07/25/19 02:09 Labs: Abnormal Lab Results - Last 24 Hours (Table) 07/24/19 07/25/19 07/25/19 Range/Units 19:14 02:09 02:09 RBC 3.85 L (4.30-5.90) m/uL Hgb 11.1 L (13.0-17.5) gm/dL Hct 35.3 L (39.0-53.0) % APTT 79.0 H (22.0-30.0) sec Sodium 135 L (137-145) mmol/L Creatinine 0.63 L (0.66-1.25) mg/dL Glucose 109 H (74-99) mg/dL 07/25/19 07/25/19 Range/Units 02:09 10:46 RBC (4.30-5.90) m/uL Hgb (13.0-17.5) gm/dL Hct (39.0-53.0) % APTT 74.5 H 49.4 H (22.0-30.0) sec Sodium (137-145) mmol/L Creatinine (0.66-1.25) mg/dL Glucose (74-99) mg/dL Assessment and Plan Assessment: 1 acute pulmonary embolism with secondary shortness of breath and pleurisy with some evidence of right ventricular strain based on CAT scan criteria. Echocardiogram is still pending for now. Meanwhile, this patient is bedridden secondary to is a less and he has metastatic prostate cancer on Lupron and both of these conditions are considered to be thrombogenic and considered to be risk factors for venous thrombolic disease. Currently on IV heparin. CAT scan of the chest was noted and the patient has a right-sided pulmonary embolism more so to the right lower lobe pulmonary artery branch. 2 shortness of breath secondary to above 3 pleurisy secondary to above 4 acute hypoxic respiratory failure secondary to above 5 ALS utilizing a noninvasive positive pressure ventilator overnight and was being considered for PEG tube insertion in 2 weeks time due to progressive loss in swallowing capacity. No reported aspiration. Diagnosis established in 2019 and the patient has been progressively getting worse. 6 metastatic prostate cancer 7 hypertension 8 hyperlipidemia Plan The patient was seen and evaluated by Dr. Lianne Mary from the pulmonary standpoint, on room air Continue heparin drip for now Possible PEG tube placement in a.m. We'll continue to follow I, the cosigning physician, performed a history & physical examination of the patient. Lungs sounds are clear, diminished. Maintaining good O2 saturations in the 90s on room air. I discussed the assessment and plan of care with my nurse practitioner, Estephanie Hutchinson. I attest to the above note as dictated by her.
[2019-07-25] MEDS: SODIUM CHLORIDE 0.9% 1,000 ML IV SCH (12:17)
--- NOTE | 2019-07-25 13:11 | P.PN ---
Subjective 68-year-old male was sent in from [place] because of CT angios showing pulmonary embolism patient has multiple right-sided pulmonary emboli. 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 Patient has metastatic prostate cancer for which patient is on Lupron injections as well. Patient was started on IV heparin. Patient is supposed to get a PEG tube because of his significant dysphagia from his primary lateral sclerosis in about a week. Since patient is going to be on anticoagulation after discussing with the patient I'm consulting speech therapy and the gastroneurology for PEG tube placement here possibly tomorrow and patient at that time will be resumed on Eliquis. For now we'll continue with the heparin. 07/25/2019 No overnight events patient will undergo for PEG tube placement tomorrow after that patient will be switched Eliquis and can be discharged.patient is otherwise clinically stable hemodynamically stable. Constitutional: Denied any fatigue denied any fever. Cardio vascular: denied any chest pain, palpitations Gastrointestinal denied any nausea vomiting Pulmonary: Denied any shortness of breath cough Neurologic denied any new focal deficits All inpatient medications were reviewed and appropriate changes in these medications as dictated in the interval history and assessment and plan. Objective - Vital Signs Vital signs: Vital Signs Temp 98.4 F 07/25/19 08:10 Pulse 90 07/25/19 11:30 Resp 16 07/25/19 11:30 BP 108/54 07/25/19 11:30 Pulse Ox 95 07/25/19 11:30 Intake & Output 07/24/19 07/25/19 07/25/19 18:59 06:59 18:59 Intake Total 234.989 200 Output Total 200 Balance 34.989 200 Weight 78.018 kg 81.5 kg Intake: Intake, IV Titration 234.989 Amount Heparin Sod,Pork in 0.45% 234.989 NaCl 25,000 unit In 0.45 % NaCl 1 250ml.bag @ 18 UNITS/KG/HR 14.043 mls/hr IV .[id number] [facility] Rx#: [id number] Oral 200 Output: Urine 200 Other: Voiding Method Urinal Urinal Urinal Diaper Diaper - Exam PHYSICAL EXAMINATION: GENERAL: The patient is alert and oriented x3, not in any acute distress. Well developed, well nourished. HEENT: Pupils are round and equally reacting to light. EOMI. No scleral icterus. No conjunctival pallor. Normocephalic, atraumatic. No pharyngeal erythema. No thyromegaly. CARDIOVASCULAR: S1 and S2 present. No murmurs, rubs, or gallops. PULMONARY: Chest is clear to auscultation, no wheezing or crackles. ABDOMEN: Soft, nontender, nondistended, normoactive bowel sounds. No palpable organomegaly. MUSCULOSKELETAL: No joint swelling or deformity. EXTREMITIES: No cyanosis, clubbing. NEUROLOGICAL: She does have significant weakness in both bilateral upper limbs and lower limbs along with the motor speech difficulties there is some swelling of both upper extremities SKIN: No rashes. - Labs CBC & Chem 7: 07/25/19 02:09 07/25/19 02:09 Labs: Abnormal Lab Results - Last 24 Hours (Table) 07/24/19 07/25/19 07/25/19 Range/Units 19:14 02:09 02:09 RBC 3.85 L (4.30-5.90) m/uL Hgb 11.1 L (13.0-17.5) gm/dL Hct 35.3 L (39.0-53.0) % APTT 79.0 H (22.0-30.0) sec Sodium 135 L (137-145) mmol/L Creatinine 0.63 L (0.66-1.25) mg/dL Glucose 109 H (74-99) mg/dL 07/25/19 07/25/19 Range/Units 02:09 10:46 RBC (4.30-5.90) m/uL Hgb (13.0-17.5) gm/dL Hct (39.0-53.0) % APTT 74.5 H 49.4 H (22.0-30.0) sec Sodium (137-145) mmol/L Creatinine (0.66-1.25) mg/dL Glucose (74-99) mg/dL Assessment and Plan Plan: - acute pulmonary embolism with pleurisy and shortness of breath and some mild right went to strain on the CAT scan. Patient is on IV heparin which will be continued. 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 possibility of PEG tube placement because of which patient will be started on will not be started on any oral anticoagulation yetthe patient will undergo PEG tube placement tomorrow. Patient is presently on mechanical soft diet which she is able to tolerate without any aspiration -Acute hypoxic respiratory failure secondary to pulmonary embolism -Amyotropic lateral sclerosis patient is on Rilizole and follows up with [facility] -Hypertension patient is presently hypotensive hold off on antidepressant medications continue with IV fluids -Depression -Hyperlipidemia -Metastatic e prostate cancer on Lupron which will be continued -Generalized weakness from AML patient still wanted to go back home for now patient's takes care of him at home
--- NOTE | 2019-07-25 14:26 | CONS ---
CONSULTATION DATE OF DICTATION: July 25, 2019. REQUESTING PHYSICIAN: Dr. Watson and Dr. Jose Carlos Brownlee. REASON FOR CONSULTATION: PEG tube placement. HISTORY OF PRESENT ILLNESS: The patient is a 68-year-old pleasant white male who was transferred from [facility] because of acute pulmonary embolism. The patient was diagnosed with amyotrophic lateral sclerosis back in September of 2018 and has been progressively getting worse and lately has been wheelchair-bound and has decreased oral intake. He apparently was scheduled for a PEG tube insertion at [facility] in 2 weeks. However, in the meantime, because of chest pain and shortness of breath, he went to the emergency room at [facility]. He had a CT angiogram done that showed evidence of pulmonary embolism. He was started on IV heparin drip currently, and pulmonary following the patient closely. We are consulted for PEG tube placement because of significantly poor oral intake. The patient is able to communicate with some difficulty. He denies any abdominal pain. Reports no nausea, vomiting. He denies any rectal bleeding or melena. He states that he has been able to eat a small amount of food without much difficulty or any aspiration. PAST MEDICAL HISTORY: Significant for amyotrophic lateral sclerosis diagnosed in September of 2018, history of hypertension, hyperlipidemia, prostate cancer, gastroesophageal reflux disease. PAST SURGERY HISTORY: Cholecystectomy, appendectomy, hernia repair, neck surgery. MEDICATIONS: At home include Pepcid, Cymbalta, vitamin D3, calcium, Baclofen, Zetia, Fenofibrate, Xgeva. ALLERGIES: None. SOCIAL HISTORY: No smoking. No alcohol use. FAMILY HISTORY: Unremarkable. REVIEW OF SYSTEMS: Very difficulty to assess the patient because of some dysphagia. However, he denies any cardiopulmonary. He denies any chest pain, shortness of breath. GENITOURINARY: No dysuria, hematuria. MUSCULOSKELETAL: Complains of back pain. NEUROLOGY: Severe amyotrophic lateral sclerosis with significant muscle weakness and wheelchair-bound. CONSTITUTIONAL: No recent weight loss. No fever, chills, night sweats. PHYSICAL EXAMINATION: He appears comfortable, in no apparent distress. Vital signs stable. Blood pressure is 112/82, pulse rate 89 per minute and afebrile. HEENT examination unremarkable. Conjunctivae pink. Sclerae anicteric. Oral cavity no lesions. NECK no JVD or lymph node enlargement. CHEST: Clear to auscultation. HEART: Regular rate and rhythm. ABDOMEN: Soft, it was nondistended, nontender. Bowel sounds are positive. No organomegaly. EXTREMITIES: No pedal edema. SKIN no rashes. NEUROLOGIC: Alert and oriented x3. No focal deficits. LABS: From today WBC 9.1, hemoglobin 11.5 platelets normal. PT 74.5. Basic metabolic panel is within normal limits. IMPRESSION: 1. Oropharyngeal dysphagia secondary to amyotrophic lateral sclerosis. The patient has been having progressive disease for since the time of diagnosis 8 months ago. He was scheduled for an EGD with a PEG tube placement at [facility] in 2 weeks from now. He was admitted to the hospital because of acute pulmonary embolism and presently on IV heparin. 2. Acute pulmonary embolism on IV heparin. 3. Amyotrophic lateral sclerosis diagnosed in September of 2018 followed at [facility]. 4. History of prostate cancer. RECOMMENDATIONS: I had a lengthy discussion with the patient regarding proceeding with EGD with PEG tube placement. He is agreeable to it. We will hold off on the heparin for 6 hours prior to the procedure which is scheduled for tomorrow. I discussed with the patient, risks, benefits and complications, and it appears that he understands and is agreeable to the procedure. Thank you for this consultation. MMODL / IJN: [id number] /
--- NOTE | 2019-07-25 15:44 | ECHOF ---
Referral Reason:PE MEASUREMENTS -------- HEIGHT: 180.3 cm WEIGHT: 78.0 kg BP: IVSd: 1.2 cm (0.6 - 1.1) LVIDd: 3.0 cm (3.9 - 5.3) LVPWd: 1.2 cm (0.6 - 1.1) IVSs: 1.6 cm LVIDs: 1.9 cm LVPWs: 1.8 cm RVIDd: 3.4 cm (< 3.3) Ao Diam: 3.3 cm (2.0 - 3.7) LA Diam: 3.3 cm (2.7 - 3.8) AV Cusp: 1.9 cm (1.5 - 2.6) MV E Benson: 0.72 m/s MV DecT: 109 ms MV A Benson: 0.25 m/s MV E/A Ratio: 2.87 RAP: 5.00 mmHg RVSP: 31.94 mmHg TAPSE: 24.71 mm FINDINGS -------- Sinus rhythm. This was a technically difficult study with suboptimal views. The left ventricular size is normal. There is mild concentric left ventricular hypertrophy. Overa ll left ventricular systolic function is normal with, an EF between 55 - 60 %. The right ventricle is mildly enlarged. The right ventricular systolic function is normal. The left atrial size is normal. The right atrial size is normal. Lumason used The aortic valve is trileaflet and appears structurally normal. The mitral valve is normal. There is trace mitral regurgitation. The tricuspid valve appears structurally normal. Mild tricuspid regurgitation present. Right vent ricular systolic pressure is normal at < 35 mmHg. There is no pulmonic regurgitation present. The aortic root size is normal. IVC Not well visulized. There is no pericardial effusion. CONCLUSIONS -------- 1. Sinus rhythm. 2. This was a technically difficult study with suboptimal views. 3. The left ventricular size is normal. 4. There is mild concentric left ventricular hypertrophy. 5. Overall left ventricular systolic function is normal with, an EF between 55 - 60 %. 6. The right ventricle is mildly enlarged. 7. The right ventricular systolic function is normal. 8. The left atrial size is normal. 9. The right atrial size is normal. 10. Lumason used 11. The aortic valve is trileaflet and appears structurally normal. 12. The mitral valve is normal. 13. There is trace mitral regurgitation. 14. The tricuspid valve appears structurally normal. 15. Mild tricuspid regurgitation present. 16. Right ventricular systolic pressure is normal at < 35 mmHg. 17. There is no pulmonic regurgitation present. 18. The aortic root size is normal. 19. IVC Not well visulized. 20. There is no pericardial effusion. LABOR CONTRACTOR: Lila Krishnan RDCS
[2019-07-25] MEDS: EZETIMIBE 10 MG TAB PO SCH (20:32)
[2019-07-25] MEDS: Riluzole [Rilutek] PO SCH (20:33)
[2019-07-25] MEDS: FAMOTIDINE 20 MG TAB PO SCH (20:33)
[2019-07-25] MEDS: AMITRIPTYLINE HCL 25 MG TAB PO SCH (20:33)
[2019-07-25] MEDS: NON FORMULARY DRUG (Riluzole [Rilutek] 50 MG) PO SCH (20:53)
[2019-07-26 06:26] LABS: HCT 36.3 % (39.0-53.0); HGB 11.4 gm/dL (13.0-17.5); MCHC 31.3 g/dL (31.0-37.0); MCV 92.5 fL (80.0-100.0); Mean Platelet Volume 7.1; Platelet Count 302 k/uL (150-450); RBC 3.93 m/uL (4.30-5.90); RDW 12.8 % (11.5-15.5); WBC 7.9 k/uL (3.8-10.6)
[2019-07-26 06:39] LABS: African American GFR (CKD) >90 (>60 ml/min/1.73 sqM); Anion Gap 7 mmol/L; Blood Urea Nitrogen 19 mg/dL (9-20); Calcium 8.5 mg/dL (8.4-10.2); Carbon Dioxide 24 mmol/L (22-30); Chloride 105 mmol/L (98-107); Glucose 101 mg/dL (74-99); Non-African American GFR(CKD) >90 (>60 ml/min/1.73 sqM); Potassium 4.2 mmol/L (3.5-5.1); Sodium 136 mmol/L (137-145)
[2019-07-26] MEDS ORDERED: MIDAZOLAM 2 MG/2 ML VIAL ONE (08:02)
[2019-07-26] MEDS ORDERED: IV FLUID CONTINUATION 1,000 ML IV ONE (08:02)
[2019-07-26] MEDS ORDERED: PROPOFOL 10 MG/ML 20 ML VIAL IV ONE (08:02)
[2019-07-26] MEDS ORDERED: LIDOCAINE 1% INJ 10MG/ML (20 ML MDV) ONE (08:02)
[2019-07-26] MEDS ORDERED: fentaNYL (PF) 50 MCG/ML 2 ML AMP ONE (08:02)
[2019-07-26] MEDS ORDERED: LACTATED RINGERS 1,000 ML IV ONE (08:28)
--- NOTE | 2019-07-26 08:31 | P.PCN ---
Date of Procedure: 07/26/19 Procedure(s) Performed: Brief history: Patient is a 68-year-old pleasant white male with history of ALS diagnosed in September 2018 and progressive dysphagia for the last few months is scheduled for an EGD with PEG tube placement today. Procedure performed: EGD with PEG tube placement Preoperative diagnosis: Dysphagia secondary to ALS IV sedation by anesthesia Procedure: After informed consent was obtained with the patient as well as the family the patient was brought into the endoscopy unit. IV conscious sedation was administered by anesthesia under continuous monitoring. The Olympus GF 160 video endoscope was inserted into the mouth and esophagus intubated without any difficulty and was gradually advanced to the stomach and duodenum. The bulb and second part of the duodenum was visualized which appeared normal. The scope at this time was withdrawn to the stomach adequately insufflated with air. Adequate transillumination was achieved onto the anterior abdominal wall. At the site of adequate transillumination and maximal finger indentation, on the anterior abdominal wall, this area was sterilely prepped and draped. One percent Xylocaine was infiltrated into the skin and a small incision was made. Trocar and cannula was passed through the incision into the stomach cavity. The trocar was removed. Guidewire was passed through the cannula into the stomach cavity which was held by the snare that was passed through the scope. The guidewire along with the scope was gently withdrawn from the stomach esophagus out of the mouth. A 20-[place] [employer] PEG tube was passed over the guidewire and was gently advanced into the mouth and esophagus and stomach. With gentle traction the guidewire along with the PEG tube was pulled from the anterior abdominal wall until the internal bumper appeared to be in secure position. Repeat EGD was performed and the esophagus intubated without any difficulty and was advanced into the stomach. The internal bumper appeared to be in secure position. The visualized portions of the antrum body cardia and fundus of the stomach appeared normal. The esophagus was carefully examined as the scope was gradually being withdrawn which appeared normal. At this time external bumper was placed on the PEG tube closer to the anterior abdominal wall at 3 cm aron. The patient tolerated the procedure well. Impression: Successful 20-[place] [employer] PEG tube placement as described above. Recommendations: Findings of this examination were discussed with the patient's family. The patient will be started on tube feeds tomorrow. Post-PEG tube orders were written.
[2019-07-26] MEDS: HEPARIN SOD,PORK IN 0.45% NACL 25,000 UNIT in 0.45% NACL 1 250ML.BAG IV SCH (10:06)
[2019-07-26 10:41] VITALS: BMI 25.4
[2019-07-26] MEDS: TAMSULOSIN 0.4 MG CAP.ER.24H PO SCH (12:01)
[2019-07-26] MEDS: BACLOFEN 10 MG TAB PO SCH ×3 (12:02→20:21)
[2019-07-26] MEDS: DULoxetine HCL 60 MG CAPSULE.DR PO SCH (12:02)
[2019-07-26] MEDS: ASPIRIN 81 MG PO SCH (12:02)
[2019-07-26] MEDS: Riluzole [Rilutek] PO SCH ×2 (12:02→20:21)
--- NOTE | 2019-07-26 12:12 | P.PN ---
Subjective 68-year-old male was sent in from [facility] because of CT angios showing pulmonary embolism patient has multiple right-sided pulmonary emboli. 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 Patient has metastatic prostate cancer for which patient is on Lupron injections as well. Patient was started on IV heparin. Patient is supposed to get a PEG tube because of his significant dysphagia from his primary lateral sclerosis in about a week. Since patient is going to be on anticoagulation after discussing with the patient I'm consulting speech therapy and the gastroneurology for PEG tube placement here possibly tomorrow and patient at that time will be resumed on Eliquis. For now we'll continue with the heparin. 07/25/2019 No overnight events patient will undergo for PEG tube placement tomorrow after that patient will be switched Eliquis and can be discharged.patient is otherwise clinically stable hemodynamically stable. 07/26/2019 Patient had received a PEG tube. Patient will be evaluated by speech therapy patient maintained need dietary modification will verify for insurance authorization for Eliquis. Patient the has urinary retention because of which I consulted urology we wanted to try Flomax for a day and if he doesn't respond well patient may need a Warner catheter at the time. Warner catheter aspirin urology recommendations. Constitutional: Denied any fatigue denied any fever. Cardio vascular: denied any chest pain, palpitations Gastrointestinal denied any nausea vomiting Pulmonary: Denied any shortness of breath cough Neurologic denied any new focal deficits All inpatient medications were reviewed and appropriate changes in these medications as dictated in the interval history and assessment and plan. Objective - Vital Signs Vital signs: Vital Signs Temp 98.1 F 07/26/19 08:50 Pulse 85 07/26/19 11:05 Resp 16 07/26/19 11:05 BP 114/60 07/26/19 11:00 Pulse Ox 99 07/26/19 11:00 Intake & Output 07/25/19 07/26/19 07/26/19 18:59 06:59 18:59 Intake Total 447 617.237 100 Output Total 600 1000 Balance -153 -382.763 100 Weight 83 kg 83 kg Intake: IV 87 100 Heparin Sod,Pork in 0.45% 87 NaCl 25,000 unit In 0.45 % NaCl 1 250ml.bag @ 18 UNITS/KG/HR 14.043 mls/hr IV .[id number] NATASHA Rx#: [id number] Intake, IV Titration 160 417.237 0 Amount Heparin Sod,Pork in 0.45% 257.237 0 NaCl 25,000 unit In 0.45 % NaCl 1 250ml.bag @ 18 UNITS/KG/HR 14.043 mls/hr IV .[id number] NATASHA Rx#: [id number] Sodium Chloride 0.9% 1, 160 160 000 ml @ 20 mls/hr IV . Q24H NATASHA Rx#:[id number] Oral 200 200 Output: Urine 600 1000 Straight 600 500 Other: Voiding Method Urinal Urinal Urinal Diaper Diaper Diaper - Exam PHYSICAL EXAMINATION: GENERAL: The patient is alert and oriented x3, not in any acute distress. Well developed, well nourished. HEENT: Pupils are round and equally reacting to light. EOMI. No scleral icterus. No conjunctival pallor. Normocephalic, atraumatic. No pharyngeal erythema. No thyromegaly. CARDIOVASCULAR: S1 and S2 present. No murmurs, rubs, or gallops. PULMONARY: Chest is clear to auscultation, no wheezing or crackles. ABDOMEN: Soft, nontender, nondistended, normoactive bowel sounds. No palpable organomegaly. Patient has a PEG tube in place MUSCULOSKELETAL: No joint swelling or deformity. EXTREMITIES: No cyanosis, clubbing. Does have some pedal edema NEUROLOGICAL: She does have significant weakness in both bilateral upper limbs and lower limbs along with the motor speech difficulties there is some swelling of both upper extremities SKIN: No rashes. - Labs CBC & Chem 7: 07/26/19 05:33 07/26/19 05:33 Labs: Abnormal Lab Results - Last 24 Hours (Table) 07/26/19 07/26/19 Range/Units 05:33 05:33 RBC 3.93 L (4.30-5.90) m/uL Hgb 11.4 L (13.0-17.5) gm/dL Hct 36.3 L (39.0-53.0) % Sodium 136 L (137-145) mmol/L Creatinine 0.59 L (0.66-1.25) mg/dL Glucose 101 H (74-99) mg/dL Assessment and Plan Plan: - acute pulmonary embolism with pleurisy and shortness of breath . Patient is on IV heparin which will be continued. Patient will be switched to Eliquis later today if we get authorization from the insurance. 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 possibility of PEG tube placement because of which patient will be started on will not be started on any oral anticoagulation yet , patient had a PEG tube in place Patient is presently on mechanical soft diet which she is able to tolerate without any aspiration -Acute hypoxic respiratory failure secondary to pulmonary embolism -Amyotropic lateral sclerosis patient is on Rilizole and follows up with [facility] -Hypertension : Improved with IV fluids -Depression -Hyperlipidemia -Metastatic e prostate cancer on Lupron which will be continued -Urinary retention patient is being started on Flomax -Generalized weakness from AML patient still wanted to go back home for now patient's takes care of him at home
[2019-07-26] MEDS: APIXABAN 5 MG TAB PO SCH ×2 (12:27→20:21)
--- NOTE | 2019-07-26 12:35 | P.PN ---
Subjective Progress Note Date: 07/26/19 Principal diagnosis: Chest pain A 68-year-old male patient was transferred from [facility] because of pulmonary embolism. This patient is known to have ALS diagnosed back in September 2018 and his condition is been progressively getting worse where the patient become essentially bedridden and wheelchair bound. The patient has lost his ability to ambulate. He is swallowing has been progressively getting weak and he was scheduled to have a PEG tube insertion at [facility] in 2 weeks time. He has not aspirated. He also has metastatic prostate cancer for which she is taking Lupron injections. He has metastases to his bone. The patient eloped acute chest pain and shortness of breath a few days duration and for that reason his took him to [facility] where he underwent a CT angiogram and the patient was found to have evidence of pulmonary embolism. There was multiple right-sided pulmonary emboli mainly in the right lower lobe pulmonary artery branch in addition to some right ventricular strain on the CAT scan. There was a small right-sided pleural effusion and bibasilar scarring/atelectasis in addition to superior T9 endplate deformity that was nonacute. The patient's white second was at 8.3 with a hemoglobin of 12.7 and a platelet count of 10 and 43. His BUN 23 with a creatinine of 0.7. Serum bicarb is 25 with a sodium of 138. The patient was admitted to the hospital and currently is on anticoagulation. He is still having pleurisy mainly along the right side of the chest. He is a week cough. No calf pain. No swelling in lower extremities. No reported aspiration for now. The patient is seen today 07/25/2019 in follow-up on the selective care unit. He is currently awake and alert. Resting comfortably in bed. He is maintaining O2 saturations in the mid 90s on room air. He's been afebrile. Hemodynamically stable. White count 9.1. Hemoglobin 11.1. Sodium 135. Creatinine 0.63. He remains on a heparin drip. The plan is for possible PEG tube placement tomorrow. The patient is seen today 07/26/2019 in follow-up on the selective care unit. He is resting comfortably in bed. Awake and alert in no acute distress. He did undergo EGD with PEG tube placement earlier this morning. Exit site is clean and dry. White count 7.9. Hemoglobin 11.4. Sodium 136. Potassium 4.2. Creatinine 0.59. He is maintaining good O2 saturation the high 90s on 2 L/m per nasal cannula. He is afebrile. Hemodynamically stable. Heparin was discontinued and he's been initiated on Eliquis. Objective - Vital Signs Vital signs: Vital Signs Temp 98.1 F 07/26/19 08:50 Pulse 85 07/26/19 11:05 Resp 16 07/26/19 11:05 BP 114/60 07/26/19 11:00 Pulse Ox 99 07/26/19 11:00 Intake & Output 07/25/19 07/26/19 07/26/19 18:59 06:59 18:59 Intake Total 447 617.237 100 Output Total 600 1000 Balance -153 -382.763 100 Weight 83 kg 83 kg Intake: IV 87 100 Heparin Sod,Pork in 0.45% 87 NaCl 25,000 unit In 0.45 % NaCl 1 250ml.bag @ 18 UNITS/KG/HR 14.043 mls/hr IV .[id number] NATASHA Rx#: [id number] Intake, IV Titration 160 417.237 0 Amount Heparin Sod,Pork in 0.45% 257.237 0 NaCl 25,000 unit In 0.45 % NaCl 1 250ml.bag @ 18 UNITS/KG/HR 14.043 mls/hr IV .[id number] NATASHA Rx#: [id number] Sodium Chloride 0.9% 1, 160 160 000 ml @ 20 mls/hr IV . Q24H NATASHA Rx#:[id number] Oral 200 200 Output: Urine 600 1000 Straight 600 500 Other: Voiding Method Urinal Urinal Urinal Diaper Diaper Diaper - Exam The patient is very pleasant 68-year-old gentleman, calm laying comfortably in bed. On 2 L/m per nasal cannula. He has a soft voice. He has a weak cough. He has obvious fasciculations of the muscles of the upper and lower extremities and sometimes the mouth and the tongue. Head exam was generally normal. There was no scleral icterus or corneal arcus. Mucous membranes were moist. Neck was supple and without jugular venous distension, thyromegaly, or carotid bruits. Carotids were easily palpable bilaterally. There was no adenopathy. Lungs sounds are diminished bilaterally especially in the lung bases and the patient is a weak cough. He has pleurisy and is unable to fully expand his lungs. Cardiac exam revealed the PMI to be normally situated and sized. The rhythm was regular and no extrasystoles were noted during several minutes of auscultation. The first and second heart sounds were normal and physiologic splitting of the second heart sound was noted. There were no murmurs, rubs, clicks, or gallops. Abdominal exam revealed fresh PEG tube placement earlier this a.m. Normal bowel sounds. Examination of the extremities revealed easily palpable radial, femoral and pedal pulses. There was no cyanosis, clubbing or edema. Examination of the skin revealed no evidence of significant rashes, suspicious appearing nevi or other concerning lesions. Neurologically the patient has normal mentation. The patient has motor dysfunction and weakness in the upper and lower extremities and the patient has muscle atrophy and fasciculations. No rigidity. - Labs CBC & Chem 7: 07/26/19 05:33 07/26/19 05:33 Labs: Abnormal Lab Results - Last 24 Hours (Table) 07/26/19 07/26/19 Range/Units 05:33 05:33 RBC 3.93 L (4.30-5.90) m/uL Hgb 11.4 L (13.0-17.5) gm/dL Hct 36.3 L (39.0-53.0) % Sodium 136 L (137-145) mmol/L Creatinine 0.59 L (0.66-1.25) mg/dL Glucose 101 H (74-99) mg/dL Assessment and Plan Assessment: 1 acute pulmonary embolism with secondary shortness of breath and pleurisy with some evidence of right ventricular strain based on CAT scan criteria. Echo cardiogram is still pending for now. Meanwhile, this patient is bedridden secondary to is a less and he has metastatic prostate cancer on Lupron and both of these conditions are considered to be thrombogenic and considered to be risk factors for venous thrombolic disease. CAT scan of the chest was noted and the patient has a right-sided pulmonary embolism more so to the right lower lobe pulmonary artery branch. Heparin drip has been discontinued and he's been initiated on Eliquis 2 shortness of breath secondary to above 3 pleurisy secondary to above 4 acute hypoxic respiratory failure secondary to above 5 ALS utilizing a noninvasive positive pressure ventilator overnight 6 progressive loss in swallowing capacity. No reported aspiration. Diagnosis established in 2019 and the patient has been progressively getting worse. PEG tube placed 07/26/2019. 6 metastatic prostate cancer 7 hypertension 8 hyperlipidemia Plan The patient was seen and evaluated by Dr. Lianne Mary from the pulmonary standpoint Heparin was discontinued and he has been initiated on Eliquis PEG tube placed today We'll continue to follow I, the cosigning physician, performed a history & physical examination of the patient. Lungs sounds are clear, diminished. Maintaining good O2 saturations in the 90s on 2 L/m per nasal cannula. I discussed the assessment and plan of care with my nurse practitioner, Estephanie Hutchinson. I attest to the above note as dictated by her.
--- NOTE | 2019-07-26 12:54 | P.GSCN ---
History of Present Illness Consult date: 07/26/19 Reason for Consult: Urinary retention History of present illness: The patient is a 68-year-old male transferred from the [place] emergency room on 07/24 for treatment of pulmonary emboli. The patient had developed right chest pain and a CT arteriogram of the chest confirmed multiple small emboli. The patient has been started on anticoagulation and has been hemodynamically stable. He has a history of progressive amyotrophic lateral sclerosis which has progressed over the last several months. He has been unable to ambulate for several months. He had tentatively been scheduled to undergo PEG placement at [facility] in 2 weeks. This procedure was performed here earlier this morning. I was asked to see the patient due to urinary retention which has occurred since he was admitted. The patient says that he has had problems with hesitancy for several months. He says that he will frequently get the urge to void but unless a urinal is close by he has difficulty in initiating his flow. He says that once he does void he has a good flow. He feels that he was voiding completely. He says he usually voids every 3-4 hours during the day and 1-4 times during the night depending on his fluid intake. He has had a history of intermittent urge incontinence and has worn diapers for several months. He has constipation and usually has a bowel movement every 4-5 days with the help of a laxative. The patient was voiding at the time of admission but has required intermittent catheterization on 2 occasions for volumes of 500 and 600 cc. He denies urge to void at the present time and says that he was not particularly uncomfortable with 500 cc in his bladder. The patient has a history of prostate cancer which was diagnosed in 2011 and was treated with radiation therapy. He developed metastatic disease to his bones and has been treated with Lupron for the last 2 years. His last PSA was 0.5 in 01/2019. Review of Systems - Cardiovascular Reports chest pain - Gastrointestinal Reports as per HPI, Denies abdominal pain - Genitourinary Reports as per HPI - Musculoskeletal Reports muscle weakness Past Medical History Past Medical History: Cancer, GERD/Reflux, Hyperlipidemia, Hypertension, Prostate Disorder Additional Past Medical History / Comment(s): Amyotrophic lateral sclerosis diagnosed in 2019, currently utilizing a noninvasive positive pressure ventilator and he is scheduled to have her PEG tube insertion, metastatic prostate cancer with skeletal metastases. History of Any Multi-Drug Resistant Organisms: None Reported Past Surgical History: Appendectomy, Cholecystectomy, Hernia Repair (Right inguinal hernia), Orthopedic Surgery (Cervical spine) Additional Past Surgical History / Comment(s): neck surgery-cervicle repair, In guinal hernia repair, routine colonoscopies Past Anesthesia/Blood Transfusion Reactions: No Reported Reaction Additional Past Anesthesia/Blood Transfusion Reaction / Comm: no hx blood transfusion Past Psychological History: Anxiety, Panic Disorder Past Alcohol Use History: Rare - Past Family History Mother Additional Family Medical History / Comment(s): Heart cath minimal disease Medications and Allergies Home Medications Medication Instructions Recorded Confirmed Type Aspirin EC [Ecotrin Low Dose] 81 mg PO DAILY 05/10/17 07/24/19 History RX: Niacin 250 mg PO HS 05/10/17 07/24/19 History RX: Telmisartan 80 mg PO QAM 05/10/17 07/24/19 History Esomeprazole Magnesium [NexIUM] 40 mg PO DAILY 05/12/18 07/24/19 History Amitriptyline HCl [Elavil] 25 mg PO HS 09/16/18 07/24/19 History Ezetimibe [Zetia] 10 mg PO HS 09/16/18 07/24/19 History Calcium Carbonate [Calcium] 600 mg PO BID 07/24/19 07/24/19 History Cholecalciferol [Vitamin D3 (25 2,000 unit PO DAILY 07/24/19 07/24/19 History Mcg = 1000 Iu)] DULoxetine HCL [Cymbalta] 60 mg PO DAILY 07/24/19 07/24/19 History Famotidine [Pepcid] 40 mg PO HS 07/24/19 07/24/19 History Fenofibrate Nanocrystallized 145 mg PO DAILY 07/24/19 07/24/19 History [Fenofibrate] Lupron Unknown Strength 1 dose IM Q90D 07/24/19 07/24/19 History RX: Baclofen 5 mg PO TID 07/24/19 07/24/19 History Riluzole [Rilutek] 50 mg PO BID 07/24/19 07/24/19 History Xgeva (Unknown Strength) 1 dose SQ Q90D 07/24/19 07/24/19 History rOPINIRole HCL [Requip] 0.5 mg PO HS PRN 07/24/19 07/24/19 History Apixaban [Eliquis Starter Pack 0 mg PO DIRECTED 30 Days #1 pack 07/26/19 Rx (for VTE)] Allergies Allergy/AdvReac Type Severity Reaction Status Date / Time No Known Allergies Allergy Verified 07/24/19 12:53 Surgical - Exam Vital Signs Temp Pulse Resp BP Pulse Ox 97.8 F 85 16 104/73 93 L 07/24/19 10:54 07/24/19 10:54 07/24/19 10:54 07/24/19 10:54 07/24/19 10:54 - General well developed, well nourished, no distress - ENT no hearing loss - Neck no masses, no lymphadectomy - Respiratory normal respiratory effort - Abdomen Abdomen: soft, non tender, no organomegaly - Genitourinary normal penis with no external lesions, testicles non-tender Results - Labs 07/26/19 05:33 07/26/19 05:33 Abnormal Lab Results - Last 24 Hours (Table) 07/26/19 07/26/19 Range/Units 05:33 05:33 RBC 3.93 L (4.30-5.90) m/uL Hgb 11.4 L (13.0-17.5) gm/dL Hct 36.3 L (39.0-53.0) % Sodium 136 L (137-145) mmol/L Creatinine 0.59 L (0.66-1.25) mg/dL Glucose 101 H (74-99) mg/dL Diabetes panel 07/26/19 Range/Units 05:33 Sodium 136 L (137-145) mmol/L Potassium 4.2 (3.5-5.1) mmol/L Chloride 105 (98-107) mmol/L Carbon Dioxide 24 (22-30) mmol/L BUN 19 (9-20) mg/dL Creatinine 0.59 L (0.66-1.25) mg/dL Glucose 101 H (74-99) mg/dL Calcium 8.5 (8.4-10.2) mg/dL Calcium panel 07/26/19 Range/Units 05:33 Calcium 8.5 (8.4-10.2) mg/dL Pituitary panel 07/26/19 Range/Units 05:33 Sodium 136 L (137-145) mmol/L Potassium 4.2 (3.5-5.1) mmol/L Chloride 105 (98-107) mmol/L Carbon Dioxide 24 (22-30) mmol/L BUN 19 (9-20) mg/dL Creatinine 0.59 L (0.66-1.25) mg/dL Glucose 101 H (74-99) mg/dL Calcium 8.5 (8.4-10.2) mg/dL Adrenal panel 07/26/19 Range/Units 05:33 Sodium 136 L (137-145) mmol/L Potassium 4.2 (3.5-5.1) mmol/L Chloride 105 (98-107) mmol/L Carbon Dioxide 24 (22-30) mmol/L BUN 19 (9-20) mg/dL Creatinine 0.59 L (0.66-1.25) mg/dL Glucose 101 H (74-99) mg/dL Calcium 8.5 (8.4-10.2) mg/dL Assessment and Plan (1) Urinary retention Narrative/Plan: It is unclear to me whether the patient's urinary retention is acute or whether he's had some element of incomplete bladder emptying for several months. He has a history of metastatic prostate cancer but I doubt that this is a major factor. It is possible that the patient has some underlying bladder outflow obstruction which has been worsened by his general weakness from ALS. It would be reasonable to give him a trial of an alpha-shannon like tamsulosin 0.4 mg daily. This can be started today and the patient can be followed while he is still in the hospital with intermittent bladder scans. If he is able to void with acceptably low postvoid residuals then he may not require an indwelling catheter at the time of discharge. Current Visit: Yes Status: Acute Code(s): R33.9 - RETENTION OF URINE, UNSPECIFIED SNOMED Code(s): 597912672
[2019-07-26] MEDS: MORPHINE SULFATE 4 MG/ML SYRINGE IV PRN (14:43)
[2019-07-26] MEDS: SODIUM CHLORIDE 0.9% 1,000 ML IV SCH (16:44)
[2019-07-26] MEDS: EZETIMIBE 10 MG TAB PO SCH (20:20)
[2019-07-26] MEDS: AMITRIPTYLINE HCL 25 MG TAB PO SCH (20:21)
[2019-07-26] MEDS: FAMOTIDINE 20 MG TAB PO SCH (20:21)
[2019-07-26] MEDS: ACETAMINOPHEN TAB 325 MG TAB PO PRN (20:22)
[2019-07-27] MEDS: MORPHINE SULFATE 4 MG/ML SYRINGE IV PRN (03:38)
[2019-07-27 07:30] LABS: HCT 32.2 % (39.0-53.0); HGB 10.2 gm/dL (13.0-17.5); MCH 29.2 pg (25.0-35.0); MCHC 31.7 g/dL (31.0-37.0); MCV 92.1 fL (80.0-100.0); Mean Platelet Volume 7.3; Platelet Count 314 k/uL (150-450); RDW 12.7 % (11.5-15.5); WBC 7.1 k/uL (3.8-10.6)
[2019-07-27 07:39] LABS: African American GFR (CKD) >90 (>60 ml/min/1.73 sqM); Anion Gap 6 mmol/L; Blood Urea Nitrogen 22 mg/dL (9-20); Calcium 8.2 mg/dL (8.4-10.2); Carbon Dioxide 26 mmol/L (22-30); Chloride 105 mmol/L (98-107); Glucose 99 mg/dL (74-99); Non-African American GFR(CKD) >90 (>60 ml/min/1.73 sqM); Potassium 4.1 mmol/L (3.5-5.1); Sodium 137 mmol/L (137-145)
[2019-07-27] MEDS: APIXABAN 5 MG TAB PO SCH (10:14)
[2019-07-27] MEDS: ASPIRIN 81 MG PO SCH (10:14)
[2019-07-27] MEDS: BACLOFEN 10 MG TAB PO SCH (10:14)
--- NOTE | 2019-07-27 11:20 | FL ---
EXAMINATION TYPE: FL barium swallow w video DATE OF EXAM: 07/27/2019 MODIFIED SWALLOW / DEGLUTITION STUDY CLINICAL HISTORY: Dysphagia. ALS. TECHNIQUE: Deglutition study is performed utilizing thin liquid barium, honey and nectar thick liqui d barium, barium thick applesauce, and barium coated cracker. 1.44 minutes of fluoroscopy time was ut ilized with 0 fluoroscopic images saved as the examination was video recorded. COMPARISON: None. FINDINGS: Delayed epiglottic closure and premature spill was noted with the thin barium consistency i mproved with the thicker consistencies. Normal mastication is seen with solid modalities tested. The re is no evidence of penetration or aspiration with any modality tested. Minimal significant pharynge al residue was appreciated with more solid consistencies. IMPRESSION: No evidence of laryngeal penetration or aspiration. Please refer to speech therapist not es for further details if necessary.
--- NOTE | 2019-07-27 12:04 | P.PN ---
Subjective 68-year-old male was sent in from [place] because of CT angios showing pulmonary embolism patient has multiple right-sided pulmonary emboli. 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 Patient has metastatic prostate cancer for which patient is on Lupron injections as well. Patient was started on IV heparin. Patient is supposed to get a PEG tube because of his significant dysphagia from his primary lateral sclerosis in about a week. Since patient is going to be on anticoagulation after discussing with the patient I'm consulting speech therapy and the gastroneurology for PEG tube placement here possibly tomorrow and patient at that time will be resumed on Eliquis. For now we'll continue with the heparin. 07/25/2019 No overnight events patient will undergo for PEG tube placement tomorrow after that patient will be switched Eliquis and can be discharged.patient is otherwise clinically stable hemodynamically stable. 07/26/2019 Patient had received a PEG tube. Patient will be evaluated by speech therapy patient maintained need dietary modification will verify for insurance authorization for Eliquis. Patient the has urinary retention because of which I consulted urology we wanted to try Flomax for a day and if he doesn't respond well patient may need a Warner catheter at the time. Warner catheter aspirin urology recommendations. 07/27/2019 Patient is able to urinate Warner catheter is out and the patient will be discharged today patient is terrific to patient will need CHOP diet and there is no restriction on the modification of liquids. Patient will be discharged on Eliquis PEG tube feeds will be arranged but as of now there is no emergent need for acute feedings now patient's will be counseled regarding irrigation of the pain to maintain the patency. Constitutional: Denied any fatigue denied any fever. Cardio vascular: denied any chest pain, palpitations Gastrointestinal denied any nausea vomiting Pulmonary: Denied any shortness of breath cough Neurologic denied any new focal deficits All inpatient medications were reviewed and appropriate changes in these medications as dictated in the interval history and assessment and plan. Objective - Vital Signs Vital signs: Vital Signs Temp 98.0 F 07/27/19 08:00 Pulse 90 07/27/19 08:00 Resp 20 07/27/19 08:00 BP 124/72 07/27/19 08:00 Pulse Ox 92 L 07/27/19 08:00 Intake & Output 07/26/19 07/27/19 07/27/19 18:59 06:59 18:59 Intake Total 100 200 Output Total 400 1500 Balance -300 -1300 Weight 83 kg Intake: IV 100 Intake, IV Titration 0 Amount Heparin Sod,Pork in 0.45% 0 NaCl 25,000 unit In 0.45 % NaCl 1 250ml.bag @ 18 UNITS/KG/HR 14.043 mls/hr IV .[id number] [facility] Rx#: [id number] Oral 200 Output: Urine 400 1000 Straight 400 500 Post Void Residual 500 Other: Voiding Method Urinal Urinal Urinal Diaper Diaper Diaper - Exam PHYSICAL EXAMINATION: GENERAL: The patient is alert and oriented x3, not in any acute distress. Well developed, well nourished. HEENT: Pupils are round and equally reacting to light. EOMI. No scleral icterus. No conjunctival pallor. Normocephalic, atraumatic. No pharyngeal erythema. No thyromegaly. CARDIOVASCULAR: S1 and S2 present. No murmurs, rubs, or gallops. PULMONARY: Chest is clear to auscultation, no wheezing or crackles. ABDOMEN: Soft, nontender, nondistended, normoactive bowel sounds. No palpable or ganomegaly. Patient has a PEG tube in place MUSCULOSKELETAL: No joint swelling or deformity. EXTREMITIES: No cyanosis, clubbing. Does have some pedal edema NEUROLOGICAL: She does have significant weakness in both bilateral upper limbs and lower limbs along with the motor speech difficulties there is some swelling of both upper extremities SKIN: No rashes. - Labs CBC & Chem 7: 07/27/19 05:29 07/27/19 05:29 Labs: Abnormal Lab Results - Last 24 Hours (Table) 07/27/19 07/27/19 Range/Units 05:29 05:29 RBC 3.50 L (4.30-5.90) m/uL Hgb 10.2 L (13.0-17.5) gm/dL Hct 32.2 L (39.0-53.0) % BUN 22 H (9-20) mg/dL Creatinine 0.56 L (0.66-1.25) mg/dL Calcium 8.2 L (8.4-10.2) mg/dL Assessment and Plan Plan: - acute pulmonary embolism with pleurisy and shortness of breath . Patient most probably will be discharged on Eliquis 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 possibility of PEG tube patient is not aspirating with chopped food -Acute hypoxic respiratory failure secondary to pulmonary embolism -Amyotropic lateral sclerosis patient is on Rilizole and follows up with [facility] -Hypertension : She is actually hypotensive will not require HILTON inhibitor upon discharge -Depression -Hyperlipidemia -Metastatic e prostate cancer on Lupron which will be continued -Urinary retention patient is being discharged on Flomax -Generalized weakness from AML patient still wanted to go back home for now patient's takes care of him at home
[2019-07-27] MEDS: TAMSULOSIN 0.4 MG CAP.ER.24H PO SCH (12:20)
[2019-07-27] MEDS: Riluzole [Rilutek] PO SCH (12:20)
[2019-07-27] MEDS: DULoxetine HCL 60 MG CAPSULE.DR PO SCH (12:20)
[2019-07-27 13:53] VITALS: BP 122/70; PULSE 84; RESP 18; TEMP 98.2
--- NOTE | 2019-07-27 14:22 | P.PN ---
Subjective Progress Note Date: 07/27/19 Principal diagnosis: Acute pulmonary embolism A 68-year-old male patient was transferred from [facility] because of pulmonary embolism. This patient is known to have ALS diagnosed back in September 2018 and his condition is been progressively getting worse where the patient become essentially bedridden and wheelchair bound. The patient has lost his ability to ambulate. He is swallowing has been progressively getting weak and he was scheduled to have a PEG tube insertion at [facility] in 2 weeks time. He has not aspirated. He also has metastatic prostate cancer for which she is taking Lupron injections. He has metastases to his bone. The patient eloped acute chest pain and shortness of breath a few days duration and for that reason his took him to [facility] where he underwent a CT angiogram and the patient was found to have evidence of pulmonary embolism. There was multiple right-sided pulmonary emboli mainly in the right lower lobe pulmonary artery branch in addition to some right ventricular strain on the CAT scan. There was a small right-sided pleural effusion and bibasilar scarring/atelectasis in addition to superior T9 endplate deformity that was nonacute. The patient's white second was at 8.3 with a hemoglobin of 12.7 and a platelet count of 10 and 43. His BUN 23 with a creatinine of 0.7. Serum bicarb is 25 with a sodium of 138. The patient was admitted to the hospital and currently is on anticoagulation. He is still having pleurisy mainly along the right side of the chest. He is a week cough. No calf pain. No swelling in lower extremities. No reported aspiration for now. The patient is seen today 07/25/2019 in follow-up on the selective care unit. He is currently awake and alert. Resting comfortably in bed. He is maintaining O2 saturations in the mid 90s on room air. He's been afebrile. Hemodynamically stable. White count 9.1. Hemoglobin 11.1. Sodium 135. Creatinine 0.63. He remains on a heparin drip. The plan is for possible PEG tube placement tomorrow. The patient is seen today 07/26/2019 in follow-up on the selective care unit. He is resting comfortably in bed. Awake and alert in no acute distress. He did undergo EGD with PEG tube placement earlier this morning. Exit site is clean and dry. White count 7.9. Hemoglobin 11.4. Sodium 136. Potassium 4.2. Cr eatinine 0.59. He is maintaining good O2 saturation the high 90s on 2 L/m per nasal cannula. He is afebrile. Hemodynamically stable. Heparin was discontinued and he's been initiated on Eliquis. Patient was reevaluated today on 07/27/19, patient seems to be doing fairly well, asymptomatic, no cough no wheezing no shortness of breath. He does have aches and pains mostly. Underwent EGD today, there was no evidence of laryngeal penetration or aspiration. Patient is tolerating his anticoagulation therapy well, and I believe from our perspective patient could be considered for discharge home. He was seen by urology for his urinary retention, and he is now on a trial of alpha shannon/tamsulosin. Patient will be discharged also on Eliquis. Objective - Vital Signs Vital signs: Vital Signs Temp 98.2 F 07/27/19 12:00 Pulse 84 07/27/19 12:00 Resp 18 07/27/19 12:00 BP 122/70 07/27/19 12:00 Pulse Ox 94 L 07/27/19 12:00 Intake & Output 07/26/19 07/27/19 07/27/19 18:59 06:59 18:59 Intake Total 100 200 300 Output Total 400 1500 1000 Balance -300 -1300 -700 Weight 83 kg 83 kg Intake: IV 100 Intake, IV Titration 0 Amount Heparin Sod,Pork in 0.45% 0 NaCl 25,000 unit In 0.45 % NaCl 1 250ml.bag @ 18 UNITS/KG/HR 14.043 mls/hr IV .[id number] [facility] Rx#: [id number] Oral 200 300 Output: Urine 400 1000 1000 Straight 400 500 Post Void Residual 500 Other: Voiding Method Urinal Urinal Urinal Diaper Diaper Diaper - Exam The patient is very pleasant 68-year-old gentleman, in no distress. On 2 L nasal cannula. HEENT: PERRLA, EOMI, no icterus. Moist mucous membranes. Throat is clear. Lungs sounds are diminished bilaterally especially in the lung bases and the patient is a weak cough. Cardiac exam revealed normal S1 and S2, no S3 gallop. Skin: No rashes. Abdomen: Soft nontender no megaly no rebound. PEG tube is noted. Psychiatric: Normal mood affect and normal mental status examination. Neurologically the patient has normal mentation. The patient has motor dysfunction and weakness in the upper and lower extremities and the patient has muscle atrophy and fasciculations. No rigidity. - Labs CBC & Chem 7: 07/27/19 05:29 07/27/19 05:29 Labs: Abnormal Lab Results - Last 24 Hours (Table) 07/27/19 07/27/19 Range/Units 05:29 05:29 RBC 3.50 L (4.30-5.90) m/uL Hgb 10.2 L (13.0-17.5) gm/dL Hct 32.2 L (39.0-53.0) % BUN 22 H (9-20) mg/dL Creatinine 0.56 L (0.66-1.25) mg/dL Calcium 8.2 L (8.4-10.2) mg/dL Assessment and Plan Assessment: Impression: Acute pulmonary embolism. Provoked by the fact that the patient is bed round and rhythm. Secondary to his underlying ALS. And patient is known to have history of metastatic prostate cancer. Hence would recommend lifetime anticoa gulation. Acute hypoxic respiratory failure secondary to above. ALS, uses noninvasive positive pressure ventilator overnight. Metastatic prostate cancer. Hypertension. Dyslipidemia. Recommendation: Agree with discharge planning on anticoagulations therapy/Eliquis and this would be a lifetime unless there is a contraindication to anticoagulation therapy. Will sign off and see the patient on when necessary basis. Swallow evaluation was noted to be negative. Time with Patient: Less than 30
--- NOTE | 2019-07-27 14:31 | PN ---
PROGRESS NOTE DATE OF SERVICE: 07/27/2019 Patient is a 68-year-old pleasant white male with history of high lateral sclerosis, admitted to the hospital with progressive weakness and difficulty swallowing. He underwent an upper endoscopy and PEG tube placement yesterday. Today he had a modified barium swallow done that showed no evidence of laryngeal penetration or aspiration. He is on a regular diet, tolerating well. PEG tube has not been used for feeds. PHYSICAL EXAMINATION: He appears comfortable, in no apparent distress. Vital signs are stable, blood pressure is 124/72, pulse rate 90, temperature 98. HEENT: Examination unremarkable, conjunctivae are pink, sclerae nonicteric, oral cavity no lesions. NECK: No JVD or lymph node enlargement. CHEST: Clear to auscultation. HEART: Regular rate and rhythm. ABDOMEN: Soft, bowel sounds are positive, no organomegaly. EXTREMITIES: No pedal edema. NEURO: Progressive weakness in the upper and lower extremities. He is alert and oriented. LABS: From today WBC 11.1, hemoglobin 10.2, platelets normal. IMPRESSION: 1. Oropharyngeal dysphagia but modified barium swallow did not show any evidence of aspiration. He is status post EGD with a PEG tube placement yesterday. Presently on a regular diet, tolerating well. Nutrition/dietitian has evaluated the patient and recommendations for nutritional supplements via the PEG tube will be given to the patient. 2. History of ALS. RECOMMENDATION: 1. The patient will be educated about embarking of the PEG tube. 2. For now, he can continue with regular diet. 3. Use PEG tube as needed. 4. Follow up in the office if he has any problems. Thank you for this consultation. MMODL / IJN: [id number] /
--- NOTE | 2019-07-30 17:44 | P.DS ---
Providers Date of admission: 07/25/19 10:32 Expected date of discharge: 07/27/19 Attending physician: Vibha Watson Consults: 07/24/19 12:10 Consult Physician Routine Consulting Provider: Hal Abdalla Consult Reason/Comments: PE Do you want consulting provider notified?: Already Contacted 07/24/19 15:54 Consult Physician Routine Consulting Provider: Saravanan Martinez Consult Reason/Comments: peg tube placement Do you want consulting provider notified?: Yes 07/26/19 10:45 Consult Physician Routine Consulting Provider: Juan Diego Goss Consult Reason/Comments: Retention, hx ALS & prostate CA Do you want consulting provider notified?: Already Contacted Primary care physician: Jose Carlos Brownlee Hospital Course: Please refer to the progress note from the same day Patient Condition at Discharge: Fair Plan - Discharge Summary New Discharge Prescriptions: New Apixaban [Eliquis Starter Pack (for VTE)] 0 mg PO DIRECTED 30 Days #1 pack Tamsulosin [Flomax] 0.4 mg PO PC-BRKFST #30 cap.er.24h Continue Niacin 250 mg PO HS Esomeprazole Magnesium [NexIUM] 40 mg PO DAILY Ezetimibe [Zetia] 10 mg PO HS Amitriptyline HCl [Elavil] 25 mg PO HS Baclofen 5 mg PO TID Calcium Carbonate [Calcium] 600 mg PO BID Cholecalciferol [Vitamin D3 (25 Mcg = 1000 Iu)] 2,000 unit PO DAILY DULoxetine HCL [Cymbalta] 60 mg PO DAILY Famotidine [Pepcid] 40 mg PO HS Riluzole [Rilutek] 50 mg PO BID rOPINIRole HCL [Requip] 0.5 mg PO HS PRN PRN Reason: restless legs Leuprolide Acetate [Lupron Depot] 22.5 mg IM Q90D Xgeva 120mg 120 mg SQ Q30D Discontinued Telmisartan 80 mg PO QAM Aspirin EC [Ecotrin Low Dose] 81 mg PO DAILY Fenofibrate Nanocrystallized [Fenofibrate] 145 mg PO DAILY Discharge Medication List Niacin 250 mg PO HS 05/10/17 [History] Esomeprazole Magnesium [NexIUM] 40 mg PO DAILY 05/12/18 [History] Amitriptyline HCl [Elavil] 25 mg PO HS 07/30/19 [History] Ezetimibe [Zetia] 10 mg PO HS 09/16/18 [History] Baclofen 5 mg PO TID 07/24/19 [History] Calcium Carbonate [Calcium] 600 mg PO BID 07/24/19 [History] Cholecalciferol [Vitamin D3 (25 Mcg = 1000 Iu)] 2,000 unit PO DAILY 07/24/19 [History] DULoxetine HCL [Cymbalta] 60 mg PO DAILY 07/24/19 [History] Famotidine [Pepcid] 40 mg PO HS 07/24/19 [History] Riluzole [Rilutek] 50 mg PO BID 07/24/19 [History] rOPINIRole HCL [Requip] 0.5 mg PO HS PRN 07/24/19 [History] Apixaban [Eliquis Starter Pack (for VTE)] 0 mg PO DIRECTED 30 Days #1 pack 07/26/19 [Rx] Leuprolide Acetate [Lupron Depot] 22.5 mg IM Q90D 07/27/19 [History] Tamsulosin [Flomax] 0.4 mg PO PC-BRKFST #30 cap.er.24h 07/27/19 [Rx] Xgeva 120mg 120 mg SQ Q30D 07/27/19 [History] Follow up Appointment(s)/Referral(s): Jose Carlos Brownlee MD [Primary Care Provider] - 07/30/19 2:00 pm (Appointment made for July at 2:00 p.m.) [facility] [[facility]-STAFF] - Patient Instructions/Handouts: Pulmonary Embolism (GEN), How to Use and Care for Your PEG Tube (ED), Urinary Retention in Men (GEN) Discharge Disposition: HOME WITH HOME HEALTH SERVICES
== END 2019-07-27 14:04 | disposition home health service (06) | DRG 175 ==
LOC: EC 10:53 → 3SCARD 12:19 → OBSVTOIN 07-25 10:32
PROVIDERS: ADMIT Internal Medicine; ATTEND Internal Medicine
PROC: 3E0G76Z Introduction of Nutritional Substance into Upper GI, Via Natural or Artificial Opening (ICD-10-PCS; 2019-07-26)
PROC: 0DH63UZ Insertion of Feeding Device into Stomach, Percutaneous Approach (ICD-10-PCS; principal; 2019-07-26 07:45)
DX: I26.99 Other pulmonary embolism without acute cor pulmonale (principal); J96.01 Acute respiratory failure with hypoxia; C79.51 Secondary malignant neoplasm of bone; G12.21 Amyotrophic lateral sclerosis; J98.11 Atelectasis; J90 Pleural effusion, not elsewhere classified; Z11.59 Encounter for screening for other viral diseases; R13.12 Dysphagia, oropharyngeal phase; I95.9 Hypotension, unspecified; I10 Essential (primary) hypertension; E78.5 Hyperlipidemia, unspecified; K21.9 Gastro-esophageal reflux disease without esophagitis; F41.0 Panic disorder [episodic paroxysmal anxiety]; F32.9 Major depressive disorder, single episode, unspecified; R53.1 Weakness; R33.9 Retention of urine, unspecified; N39.41 Urge incontinence; K59.00 Constipation, unspecified; N32.0 Bladder-neck obstruction; Z71.3 Dietary counseling and surveillance; Z79.82 Long term (current) use of aspirin; Z79.899 Other long term (current) drug therapy; Z79.818 Long term (current) use of other agents affecting estrogen receptors and estrogen levels; Z92.3 Personal history of irradiation; Z90.49 Acquired absence of other specified parts of digestive tract; Z98.890 Other specified postprocedural states; Z99.3 Dependence on wheelchair; Z74.01 Bed confinement status; Z85.46 Personal history of malignant neoplasm of prostate
CPT/HCPCS: 36415; 43246; 74230; 80048; 80053; 84484; 85027; 85730; 93005; 93306; 96365; 96366; 99285

== ENCOUNTER 2020-06-21 01:16 | Inpatient (IN) | payer MEDICARE ==
--- NOTE | 2020-06-21 02:04 | ED ---
Nausea/Vomiting/Diarrhea HPI - General Chief complaint: Shortness of Breath Stated complaint: SOB Time Seen by Provider: 06/21/20 01:31 Source: patient, EMS Mode of arrival: EMS Limitations: language barrier - Related Data Home Medications Medication Instructions Recorded Confirmed Niacin 250 mg PO HS 05/10/17 07/24/19 Esomeprazole Magnesium [NexIUM] 40 mg PO DAILY 05/12/18 07/24/19 Amitriptyline HCl [Elavil] 25 mg PO HS 09/16/18 07/24/19 Ezetimibe [Zetia] 10 mg PO HS 09/16/18 07/24/19 Baclofen 5 mg PO TID 07/24/19 07/24/19 Calcium Carbonate [Calcium] 600 mg PO BID 07/24/19 07/24/19 Cholecalciferol [Vitamin D3 (25 2,000 unit PO DAILY 07/24/19 07/24/19 Mcg = 1000 Iu)] DULoxetine HCL [Cymbalta] 60 mg PO DAILY 07/24/19 07/24/19 Famotidine [Pepcid] 40 mg PO HS 07/24/19 07/24/19 Riluzole [Rilutek] 50 mg PO BID 07/24/19 07/24/19 rOPINIRole HCL [Requip] 0.5 mg PO HS PRN 07/24/19 07/24/19 Leuprolide Acetate [Lupron Depot] 22.5 mg IM Q90D 07/27/19 07/27/19 Xgeva 120mg 120 mg SQ Q30D 07/27/19 07/27/19 Previous Rx's Medication Instructions Recorded Apixaban [Eliquis Starter Pack 0 mg PO DIRECTED 30 Days #1 pack 07/26/19 (for VTE)] Tamsulosin [Flomax] 0.4 mg PO PC-BRKFST #30 cap.er.24h 07/27/19 Allergies Allergy/AdvReac Type Severity Reaction Status Date / Time No Known Allergies Allergy Verified 07/27/19 09:33 Review of Systems ROS Statement: Those systems with pertinent positive or pertinent negative responses have been documented in the HPI. ROS Other: All systems not noted in ROS Statement are negative. Past Medical History Past Medical History: Cancer, GERD/Reflux, Hyperlipidemia, Hypertension, Prostate Disorder Additional Past Medical History / Comment(s): Amyotrophic lateral sclerosis diagnosed in 2019, currently utilizing a noninvasive positive pressure ventilator and he is scheduled to have her PEG tube insertion, metastatic prostate cancer with skeletal metastases. History of Any Multi-Drug Resistant Organisms: None Reported Past Surgical History: Appendectomy, Cholecystectomy, Hernia Repair, Orthopedic Surgery Additional Past Surgical History / Comment(s): neck surgery-cervicle repair, Inguinal hernia repair, routine colonoscopies Past Anesthesia/Blood Transfusion Reactions: No Reported Reaction Additional Past Anesthesia/Blood Transfusion Reaction / Comment(s): no hx blood transfusion Past Psychological History: Anxiety, Panic Disorder Smoking Status: Former smoker Past Alcohol Use History: Rare Past Drug Use History: None Reported - Past Family History Mother Additional Family Medical History / Comment(s): Heart cath minimal disease General Exam Limitations: language barrier Course Vital Signs 06/21/20 01:19 Temperature 97.6 F Pulse Rate 92 Respiratory 20 Rate Blood Pressure 129/84 O2 Sat by Pulse 97 Oximetry Disposition Referrals: Jose Carlos Brownlee MD [Primary Care Provider] - 1-2 days
--- NOTE | 2020-06-21 02:07 | ED ---
SOB HPI - General Chief Complaint: Shortness of Breath Stated Complaint: SOB Time Seen by Provider: 06/21/20 01:31 Source: patient, EMS Mode of arrival: EMS Limitations: language barrier, physical limitation (Patient is nonverbal due to ALS) - History of Present Illness Initial Comments: This patient is 69-year-old man transferred here from [facility] to be treated for suspected pneumonia the right lower lobe, possible aspiration. Patient has history of ALS and not able to give much additional history. He is able to answer simple questions by blinking. The patient reportedly had been appearing to be somewhat short of breath and was tachycardic at home and therefore patient transferred to the other hospital for evaluation where they found a right lower lobe infiltrate on the x-ray. They started treatment with Zosyn and transferred patient here. MD Complaint: shortness of breath, cough Onset/Timin -: days(s) Improves With: nothing Worsens With: nothing Known History Of: aspiration pneumonia Context: choking/aspiration (Suspected) Treatments Prior to Arrival: oxygen, other (Antibiotics) - Related Data Home Medications Medication Instructions Recorded Confirmed Niacin 250 mg PO HS 05/10/17 07/24/19 Esomeprazole Magnesium [NexIUM] 40 mg PO DAILY 05/12/18 07/24/19 Amitriptyline HCl [Elavil] 25 mg PO HS 09/16/18 07/24/19 Ezetimibe [Zetia] 10 mg PO HS 09/16/18 07/24/19 Baclofen 5 mg PO TID 07/24/19 07/24/19 Calcium Carbonate [Calcium] 600 mg PO BID 07/24/19 07/24/19 Cholecalciferol [Vitamin D3 (25 2,000 unit PO DAILY 07/24/19 07/24/19 Mcg = 1000 Iu)] DULoxetine HCL [Cymbalta] 60 mg PO DAILY 07/24/19 07/24/19 Famotidine [Pepcid] 40 mg PO HS 07/24/19 07/24/19 Riluzole [Rilutek] 50 mg PO BID 07/24/19 07/24/19 rOPINIRole HCL [Requip] 0.5 mg PO HS PRN 07/24/19 07/24/19 Leuprolide Acetate [Lupron Depot] 22.5 mg IM Q90D 07/27/19 07/27/19 Xgeva 120mg 120 mg SQ Q30D 07/27/19 07/27/19 Previous Rx's Medication Instructions Recorded Apixaban [Eliquis Starter Pack 0 mg PO DIRECTED 30 Days #1 pack 07/26/19 (for VTE)] Tamsulosin [Flomax] 0.4 mg PO PC-[id number] #30 cap.er.24h 07/27/19 Allergies Allergy/AdvReac Type Severity Reaction Status Date / Time No Known Allergies Allergy Verified 07/27/19 09:33 Review of Systems ROS Statement: Those systems with pertinent positive or pertinent negative responses have been documented in the HPI. ROS Other: All systems not noted in ROS Statement are negative. Limitations: ROS unobtainable due to patients medical condition Past Medical History Past Medical History: Cancer, GERD/Reflux, Hyperlipidemia, Hypertension, Prostate Disorder Additional Past Medical History / Comment(s): Amyotrophic lateral sclerosis diagnosed in 2019, currently utilizing a noninvasive positive pressure ventilator and he is scheduled to have her PEG tube insertion, metastatic prostate cancer with skeletal metastases. History of Any Multi-Drug Resistant Organisms: None Reported Past Surgical History: Appendectomy, Cholecystectomy, Hernia Repair, Orthopedic Surgery Additional Past Surgical History / Comment(s): neck surgery-cervicle repair, Inguinal hernia repair, routine colonoscopies Past Anesthesia/Blood Transfusion Reactions: No Reported Reaction Additional Past Anesthesia/Blood Transfusion Reaction / Comment(s): no hx blood transfusion Past Psychological History: Anxiety, Panic Disorder Smoking Status: Former smoker Past Alcohol Use History: Rare Past Drug Use History: None Reported - Past Family History Mother Additional Family Medical History / Comment(s): Heart cath minimal disease General Exam Limitations: language barrier General appearance: alert, in no apparent distress Head exam: Present: atraumatic, normocephalic Eye exam: Present: normal appearance. Absent: scleral icterus, conjunctival injection Neck exam: Present: normal inspection Respiratory exam: Present: rhonchi. Absent: respiratory distress, wheezes, rales, stridor, accessory muscle use, decreased breath sounds Cardiovascular Exam: Present: regular rate, normal rhythm, normal heart sounds. Absent: systolic murmur, diastolic murmur, rubs, gallop GI/Abdominal exam: Present: soft. Absent: distended, tenderness, guarding, rebound, rigid, mass Extremities exam: Present: normal inspection, normal capillary refill. Absent: pedal edema, calf tenderness Neurological exam: Present: alert Skin exam: Present: warm, dry, intact, normal color. Absent: rash Course Vital Signs 06/21/20 01:19 Temperature 97.6 F Pulse Rate 92 Respiratory 20 Rate Blood Pressure 129/84 O2 Sat by Pulse 97 Oximetry Medical Decision Making - Lab Data Result diagrams: 06/21/20 02:02 06/21/20 02:02 Lab Results 06/21/20 06/21/20 06/21/20 Range/Units 02:02 02:02 02:02 WBC 12.7 H (3.8-10.6) k/uL RBC 4.24 L (4.30-5.90) m/uL Hgb 13.2 (13.0-17.5) gm/dL Hct 38.9 L (39.0-53.0) % MCV 91.8 (80.0-100.0) fL MCH 31.1 (25.0-35.0) pg MCHC 33.8 (31.0-37.0) g/dL RDW 13.0 (11.5-15.5) % Plt Count 369 (150-450) k/uL MPV 7.5 Neutrophils % 68 % Lymphocytes % 20 % Monocytes % 7 % Eosinophils % 3 % Basophils % 1 % Neutrophils # 8.6 H (1.3-7.7) k/uL Lymphocytes # 2.6 (1.0-4.8) k/uL Monocytes # 0.9 (0-1.0) k/uL Eosinophils # 0.3 (0-0.7) k/uL Basophils # 0.2 (0-0.2) k/uL Sodium 141 (137-145) mmol/L Potassium 5.8 H (3.5-5.1) mmol/L Chloride 106 (98-107) mmol/L Carbon Dioxide 32 H (22-30) mmol/L Anion Gap 3 mmol/L BUN 32 H (9-20) mg/dL Creatinine 0.27 L (0.66-1.25) mg/dL Est GFR (CKD-EPI)AfAm >90 (>60 ml/min/1.73 sqM) Est GFR (CKD-EPI)NonAf >90 (>60 ml/min/1.73 sqM) Glucose 85 (74-99) mg/dL Plasma Lactic Acid Eitan 1.1 (0.7-2.0) mmol/L Calcium 8.7 (8.4-10.2) mg/dL Total Bilirubin 0.7 (0.2-1.3) mg/dL AST 50 (17-59) U/L ALT 36 (4-49) U/L Alkaline Phosphatase 68 (38-126) U/L Troponin I (0.000-0.034) ng/mL Total Protein 6.7 (6.3-8.2) g/dL Albumin 3.7 (3.5-5.0) g/dL 06/21/20 Range/Units 02:02 WBC (3.8-10.6) k/uL RBC (4.30-5.90) m/uL Hgb (13.0-17.5) gm/dL Hct (39.0-53.0) % MCV (80.0-100.0) fL MCH (25.0-35.0) pg MCHC (31.0-37.0) g/dL RDW (11.5-15.5) % Plt Count (150-450) k/uL MPV Neutrophils % % Lymphocytes % % Monocytes % % Eosinophils % % Basophils % % Neutrophils # (1.3-7.7) k/uL Lymphocytes # (1.0-4.8) k/uL Monocytes # (0-1.0) k/uL Eosinophils # (0-0.7) k/uL Basophils # (0-0.2) k/uL Sodium (137-145) mmol/L Potassium (3.5-5.1) mmol/L Chloride (98-107) mmol/L Carbon Dioxide (22-30) mmol/L Anion Gap mmol/L BUN (9-20) mg/dL Creatinine (0.66-1.25) mg/dL Est GFR (CKD-EPI)AfAm (>60 ml/min/1.73 sqM) Est GFR (CKD-EPI)NonAf (>60 ml/min/1.73 sqM) Glucose (74-99) mg/dL Plasma Lactic Acid Eitan (0.7-2.0) mmol/L Calcium (8.4-10.2) mg/dL Total Bilirubin (0.2-1.3) mg/dL AST (17-59) U/L ALT (4-49) U/L Alkaline Phosphatase (38-126) U/L Troponin I <0.012 (0.000-0.034) ng/mL Total Protein (6.3-8.2) g/dL Albumin (3.5-5.0) g/dL - EKG Data -: EKG Interpreted by Nc EKG shows normal: sinus rhythm, axis, intervals (KS interval 212 ms, consistent with first-degree AV block. QRS duration 112 ms, QTC 447 ms, both normal.), ST- T waves (normal) Rate: normal (Rate 93 bpm) Interpretation: LVH (Repolarization abnormality), other (Possible old inferior infarct. Possible old anteroseptal infarct.) Disposition Clinical Impression: Pneumonia Disposition: ADMITTED IP TO THIS HOSP Condition: Poor Referrals: Jose Carlos Brownlee MD [Primary Care Provider] - 1-2 days
[2020-06-21 02:15] LABS: Basophils # (A) 0.2 k/uL (0-0.2); Basophils % (A) 1 %; Eosinophils # (A) 0.3 k/uL (0-0.7); Eosinophils % (A) 3 %; HCT 38.9 % (39.0-53.0); HGB 13.2 gm/dL (13.0-17.5); Lymphocytes # (A) 2.6 k/uL (1.0-4.8); Lymphocytes % (A) 20 %; MCH 31.1 pg (25.0-35.0); MCHC 33.8 g/dL (31.0-37.0); MCV 91.8 fL (80.0-100.0); Mean Platelet Volume 7.5; Monocytes # (A) 0.9 k/uL (0-1.0); Monocytes % (A) 7 %; Neutrophils # (A) 8.6 k/uL (1.3-7.7); Neutrophils % (A) 68 %; Platelet Count 369 k/uL (150-450); RBC 4.24 m/uL (4.30-5.90); WBC 12.7 k/uL (3.8-10.6)
[2020-06-21 02:23] LABS: ALT 36 U/L (4-49); AST 50 U/L (17-59); African American GFR (CKD) >90 (>60 ml/min/1.73 sqM); Albumin 3.7 g/dL (3.5-5.0); Alkaline Phosphatase 68 U/L (38-126); Anion Gap 3 mmol/L; Blood Urea Nitrogen 32 mg/dL (9-20); Calcium 8.7 mg/dL (8.4-10.2); Carbon Dioxide 32 mmol/L (22-30); Chloride 106 mmol/L (98-107); Glucose 85 mg/dL (74-99); Non-African American GFR(CKD) >90 (>60 ml/min/1.73 sqM); Sodium 141 mmol/L (137-145); Total Bilirubin 0.7 mg/dL (0.2-1.3); Total Protein 6.7 g/dL (6.3-8.2)
[2020-06-21 02:42] LABS: Potassium 5.8 mmol/L (3.5-5.1)
[2020-06-21] MEDS ORDERED: PNEUMONIA PROTOCOL UTILIZED 1 EACH MISC PO PRN (02:51)
[2020-06-21 03:07] LABS: INR 0.9 (<1.2)
[2020-06-21 03:08] LABS: Partial Thromboplastin Time 18.3 sec (22.0-30.0)
[2020-06-21] MEDS: SODIUM CHLORIDE 0.9% 1,000 ML IV SCH ×2 (04:00→15:09)
[2020-06-21] MEDS ORDERED: HEPARIN SODIUM,PORCINE/PF 5,000 UNIT/0.5 ML SYRINGE SQ SCH (08:00)
[2020-06-21] MEDS: PIPERACILLIN-TAZOBACTAM 3.375 GM in SODIUM CHLORIDE 0.9% 100 ML IVPB SCH ×2 (08:05→15:37)
[2020-06-21] MEDS: ALBUTEROL NEBULIZED 2.5 MG/3 ML INHALATION PRN ×2 (08:13→20:04)
[2020-06-21] MEDS ORDERED: XGEVA 120 MG SQ SCH (13:45)
[2020-06-21] MEDS ORDERED: LEUPROLIDE IM SCH (13:45)
[2020-06-21 15:12] VITALS: BMI 23.7
--- NOTE | 2020-06-21 15:30 | XR ---
EXAMINATION TYPE: XR chest 1V DATE OF EXAM: 06/21/2020 COMPARISON: 05/10/2017 INDICATION: Short of breath TECHNIQUE: Single frontal view of the chest is obtained. FINDINGS: The heart size is normal. The pulmonary vasculature is normal. Some minimal left lower lobe infiltrate may be present. Small right costophrenic angle atelectasis or fluid may be present. Lungs otherwise appear clear. IMPRESSION: 1. Mild left lower lobe infiltrate. Correlate for subsegmental atelectasis or infiltrate. 2. Minimal right costophrenic angle atelectasis or possibly fluid could be considered.
[2020-06-21] MEDS ORDERED: BACLOFEN 10 MG TAB PO SCH (16:00)
[2020-06-21] MEDS: BACLOFEN 10 MG TAB PO SCH ×2 (16:00→21:29)
--- NOTE | 2020-06-21 17:25 | P.HPIM ---
History of Present Illness Patient is a 69-year-old male was transferred from [facility] for shortness of breath. Patient presented to [facility] with complaints of shortness of breath denied any orthopnea paroxysmal nocturnal dyspnea patient had normal BNP. Patient was recently hospitalized at [facility] was treated for aspiration pneumonia at that time. Chest x-ray that was obtained at her wheeze did not show any significant infiltrate although etiology of shortness of breath is not clear patient was started on antibiotics for healthcare associated pneumonia including Zosyn and azithromycin at this time from ER. Patient doesn't have any fever chills denied any significant cough. Patient does have history of amyotrophic lateral sclerosis unable to obtain much of the history although patient feels fine. Most of the history was up and from the chart and the the that was present at bedside. Review of Systems All other review of systems except those mentioned in HPI are either negative or unable to review. Past Medical History Past Medical History: Cancer, GERD/Reflux, Hyperlipidemia, Hypertension, Prostate Disorder Additional Past Medical History / Comment(s): ALS-amyotorhic lateral sclerosis- pt is basically nonverbal/blinks eyes once for yes and twice for no-tx at [facility], has used noninvasive + pressure ventilator in past but not lately, recent hospitalization [facility] with pneumonia and experienced urinary retention/has IDC but was to come out after 7-10 days/pt is normally aware of needing to urinate/m ove bowels, dysphagia with peg tube-strictly NPO, nonambulatory/charmaine lift to wheelchair, prostate cancer with ty mets/receives lupron injections, past HTN, hiatal hernia, gastritis, past RLS History of Any Multi-Drug Resistant Organisms: None Reported Past Surgical History: Appendectomy, Cholecystectomy, Hernia Repair, Orthopedic Surgery Additional Past Surgical History / Comment(s): Peg tube, EGD, colonoscopy, anterior approach cervicle surgery. Past Anesthesia/Blood Transfusion Reactions: No Reported Reaction Additional Past Anesthesia/Blood Transfusion Reaction / Comment(s): no hx blood transfusion Smoking Status: Former smoker - Past Family History Mother Family Medical History: Coronary Artery Disease (CAD) Additional Family Medical History / Comment(s): Heart cath minimal disease Father Family Medical History: No Reported History Medications and Allergies Home Medications Medication Instructions Recorded Confirmed Type Niacin 250 mg PO HS 05/10/17 06/21/20 History Esomeprazole Magnesium [NexIUM] 40 mg PO DAILY 05/12/18 06/21/20 History Amitriptyline HCl [Elavil] 25 mg PO HS 09/16/18 06/21/20 History Ezetimibe [Zetia] 10 mg PO HS 09/16/18 06/21/20 History Baclofen 10 mg PO BID 07/24/19 06/21/20 History Cholecalciferol [Vitamin D3 (25 2,000 unit PO DAILY 07/24/19 06/21/20 History Mcg = 1000 Iu)] DULoxetine HCL [Cymbalta] 60 mg PO DAILY 07/24/19 06/21/20 History Famotidine [Pepcid] 40 mg PO HS 07/24/19 06/21/20 History Riluzole [Rilutek] 50 mg PO BID 07/24/19 06/21/20 History rOPINIRole HCL [Requip] 0.5 mg PO HS PRN 07/24/19 06/21/20 History Leuprolide Acetate [Lupron Depot] 22.5 mg IM Q90D 07/27/19 06/21/20 History Xgeva 120mg 120 mg SQ Q30D 07/27/19 06/21/20 History Apixaban [Eliquis] 5 mg PO BID 06/21/20 06/21/20 History Calcium Carbonate/Vitamin D3 1 tab PO DAILY 06/21/20 06/21/20 History [Calcium 600-Vit D3 5 Mcg (200 Iu)] Tamsulosin [Flomax] 0.4 mg PO BID 06/21/20 06/21/20 History Allergies Allergy/AdvReac Type Severity Reaction Status Date / Time No Known Allergies Allergy Verified 06/21/20 09:30 Physical Exam Vitals: Vital Signs Temp Pulse Pulse Resp BP BP Pulse Ox 06/21/20 13:52 98.3 F 83 17 119/65 95 06/21/20 10:52 98.4 F 86 16 115/75 97 06/21/20 10:42 88 18 119/81 97 06/21/20 08:24 87 06/21/20 08:14 93 97 06/21/20 06:36 98.6 F 92 18 129/69 98 06/21/20 03:55 92 18 138/79 99 06/21/20 02:55 98.4 F 90 18 145/83 96 06/21/20 01:19 97.6 F 92 20 129/84 97 Intake and Output 06/21/20 06/21/20 06/21/20 06:59 14:59 22:59 Other: Voiding Method Indwelling Catheter Weight 79.379 kg 79.379 kg 79.379 kg PHYSICAL EXAMINATION: GENERAL: The patient is alert and and appears to be oriented nonverbal because of his AML., not in any acute distress. Well developed, well nourished. HEENT: Pupils are round and equally reacting to light. EOMI. No scleral icterus. No conjunctival pallor. Normocephalic, atraumatic. No pharyngeal erythema. No thyromegaly. CARDIOVASCULAR: S1 and S2 present. No murmurs, rubs, or gallops. PULMONARY: Chest is clear to auscultation, no wheezing or crackles. ABDOMEN: Soft, nontender, nondistended, normoactive bowel sounds. No palpable organomegaly. PEG tube in place acute site area appears to be clean MUSCULOSKELETAL: No joint swelling or deformity. EXTREMITIES: No cyanosis, clubbing, or pedal edema. NEUROLOGICAL: Paralysis of all the muscles in the body except for neck muscles and ocular muscles from ALS SKIN: No rashes. Results CBC & Chem 7: 06/21/20 02:02 06/21/20 02:02 Labs: Abnormal Lab Results - Last 24 Hours (Table) 06/21/20 06/21/20 06/21/20 Range/Units 02:02 02:02 02:02 WBC 12.7 H (3.8-10.6) k/uL RBC 4.24 L (4.30-5.90) m/uL Hct 38.9 L (39.0-53.0) % Neutrophils # 8.6 H (1.3-7.7) k/uL APTT 18.3 L (22.0-30.0) sec Potassium 5.8 H (3.5-5.1) mmol/L Carbon Dioxide 32 H (22-30) mmol/L BUN 32 H (9-20) mg/dL Creatinine 0.27 L (0.66-1.25) mg/dL Thrombosis Risk Factor Assmnt - Choose All That Apply Any of the Below Risk Factors Present?: Yes Each Factor Represents 1 point: Medical pt on bed rest, Serious lung disease incl. pneumonia (< 1month) Other Risk Factors: Yes Each Risk Factor Represents 2 Points: Age 61-74 years, Patient confined to bed, Malignancy Other congenital or acquired thrombophilia - If yes, enter type in comment: No Thrombosis Risk Factor Assessment Total Risk Factor Score: 8 Thrombosis Risk Factor Assessment Level: High Risk Assessment and Plan Plan: -Shortness of breath etiology is not clear: Repeat chest x-ray only showed atelectasis no clear evidence of pneumonia patient will be presently continued on antibiotics shortness of breath can be secondary to respiratory muscle paralysis from ALS. Pulmonary was consulted. - amyotrophic lateral sclerosis: Supportive care started on PEG tube feedings -Urinary retention patient has a Warner catheter that was recently placed about a week ago with disc in your the Warner and see if he can urinate if not patient's Warner would be put back in and patient will follow-up with urology as an outpatient -Patient is on anticoagulation unsure why he is on anticoagulation for now if this will be continued will verify with the family members regarding this -Esophageal reflux disease -Hypertension -Hyperlipidemia -DVT prophylaxis patient is already" which will be resumed and continued.
[2020-06-21] MEDS: RILUZOLE 50 MG PO SCH (20:49)
[2020-06-21] MEDS ORDERED: EZETIMIBE 10 MG TAB PO SCH (21:00)
[2020-06-21] MEDS ORDERED: FAMOTIDINE 20 MG TAB PO SCH (21:00)
[2020-06-21] MEDS ORDERED: NIACIN TR 250 MG CAPSULE.ER PO SCH (21:00)
[2020-06-21] MEDS: TAMSULOSIN 0.4 MG CAP.ER.24H PO SCH (21:29)
[2020-06-21] MEDS: APIXABAN 5 MG TAB PO SCH (21:29)
[2020-06-22] MEDS: SODIUM CHLORIDE 0.9% 1,000 ML IV SCH ×2 (02:05→08:35)
[2020-06-22] MEDS: PIPERACILLIN-TAZOBACTAM 3.375 GM in SODIUM CHLORIDE 0.9% 100 ML IVPB SCH ×3 (02:05→16:05)
[2020-06-22] MEDS: APIXABAN 5 MG TAB PO SCH (08:32)
[2020-06-22] MEDS: BACLOFEN 10 MG TAB PO SCH (08:32)
[2020-06-22] MEDS: TAMSULOSIN 0.4 MG CAP.ER.24H PO SCH (08:32)
[2020-06-22] MEDS: RILUZOLE 50 MG PO SCH (08:35)
[2020-06-22] MEDS: ALBUTEROL NEBULIZED 2.5 MG/3 ML INHALATION PRN (08:46)
[2020-06-22] MEDS ORDERED: CHOLECALCIFEROL 25 MCG (1000 IU) TABLET PO SCH (09:00)
[2020-06-22] MEDS ORDERED: DULoxetine HCL 60 MG CAPSULE.DR PO SCH (09:00)
[2020-06-22] MEDS ORDERED: PANTOPRAZOLE 40 MG TABLET PO SCH (09:00)
[2020-06-22] MEDS ORDERED: AZITHROMYCIN 500 MG in SODIUM CHLORIDE 0.9% 250 ML IVPB SCH (09:00)
[2020-06-22] MEDS ORDERED: CALCIUM CARB-VIT D 500 MG-5 MCG TAB PO SCH (09:00)
[2020-06-22 09:52] LABS: HCT 36.9 % (39.0-53.0); HGB 12.1 gm/dL (13.0-17.5); MCH 30.8 pg (25.0-35.0); MCHC 32.8 g/dL (31.0-37.0); MCV 94.1 fL (80.0-100.0); Mean Platelet Volume 6.9; Platelet Count 321 k/uL (150-450); RBC 3.92 m/uL (4.30-5.90); WBC 8.6 k/uL (3.8-10.6)
[2020-06-22 10:08] LABS: African American GFR (CKD) >90 (>60 ml/min/1.73 sqM); Anion Gap 7 mmol/L; Blood Urea Nitrogen 17 mg/dL (9-20); Calcium 8.7 mg/dL (8.4-10.2); Carbon Dioxide 28 mmol/L (22-30); Chloride 105 mmol/L (98-107); Glucose 87 mg/dL (74-99); Non-African American GFR(CKD) >90 (>60 ml/min/1.73 sqM); Potassium 4.5 mmol/L (3.5-5.1); Sodium 140 mmol/L (137-145)
--- NOTE | 2020-06-22 10:09 | P.DS ---
Providers Date of admission: 06/21/20 02:51 Attending physician: Bruno Daugherty MD Consults: 06/21/20 14:15 Consult Physician Routine Consulting Provider: Hal Abdalla Consult Reason/Comments: shortness of breath/possible pneumonia Do you want consulting provider notified?: Yes Primary care physician: Jose Carlos Brownlee [facility] Course: Patient is a 69-year-old male was transferred from [facility] for shortness of breath. Patient presented to [facility] with complaints of shortness of breath denied any orthopnea paroxysmal nocturnal dyspnea patient had normal BNP. Patient was recently hospitalized at [facility] was treated for aspiration pneumonia at that time. Chest x-ray that was obtained at her wheeze did not show any significant infiltrate although etiology of shortness of breath is not clear patient was started on antibiotics for healthcare associated pneumonia including Zosyn and azithromycin at this time from ER. Patient doesn't have any fever chills denied any significant cough. Patient does have history of amyotrophic lateral sclerosis unable to obtain much of the history although patient feels fine. Most of the history was up and from the chart and the the that was present at bedside. 06/22/2020 Patient is Luis E saturating 99% on 2 L not require oxygen. Will revaluate without oxygen. If he is saturating well patient will be discharged without production patient may eventually need oxygen. His shortness of breath and hypoxia appears to be secondary to respiratory muscle weakness from [place] tropic lateral sclerosis. Patient is unable to take deep breaths when I tried to evaluate patient does have atelectasis. I do not believe patient has pneumonia at this time although patient is definitely high risk for pneumonia as he cannot take deep breaths and the patient already has atelectasis. As of now patient may not require antibiotics but. He ends up having pneumonia fever, patient of the time will need antibiotics for pneumonia. We'll also get the opinion of pulmonary regarding this. PHYSICAL EXAMINATION: GENERAL: The patient is alert and and appears to be oriented nonverbal because of his AML., not in any acute distress. Well developed, well nourished. HEENT: Pupils are round and equally reacting to light. EOMI. No scleral icterus. No conjunctival pallor. Normocephalic, atraumatic. No pharyngeal erythema. No thyromegaly. CARDIOVASCULAR: S1 and S2 present. No murmurs, rubs, or gallops. PULMONARY: Chest is clear to auscultation, no wheezing or crackles. ABDOMEN: Soft, nontender, nondistended, normoactive bowel sounds. No palpable organomegaly. PEG tube in place acute site area appears to be clean MUSCULOSKELETAL: No joint swelling or deformity. EXTREMITIES: No cyanosis, clubbing, or pedal edema. NEUROLOGICAL: Paralysis of all the muscles in the body except for neck muscles and ocular muscles from ALS SKIN: No rashes. Assessment and Plan Plan: -Shortness of breath etiology is not clear: Probably due to respiratory muscle weakness and patient has some atelectasis as well as of now there is no clear evidence of pneumonia at this time . As of now patient probably will not require home oxygen but will be evaluated for home O2 before discharge - amyotrophic lateral sclerosis: Supportive care started on PEG tube feedings -Urinary retention patient has a Warner catheter was discontinued and patient is able to urinate by himself and patient is on tamsulosin which will be continued will also do bladder scan and make sure he is not retaining -Patient is on anticoagulation reason for visit anti-correlation is unknown will let the primary care physician addresses -Esophageal reflux disease -Hypertension -Hyperlipidemia Patient Condition at Discharge: Poor Plan - Discharge Summary Discharge Rx Participant: No New Discharge Prescriptions: Continue Niacin 250 mg PO HS Esomeprazole Magnesium [NexIUM] 40 mg PO DAILY Ezetimibe [Zetia] 10 mg PO HS Amitriptyline HCl [Elavil] 25 mg PO HS Baclofen 10 mg PO BID Cholecalciferol [Vitamin D3 (25 Mcg = 1000 Iu)] 2,000 unit PO DAILY DULoxetine HCL [Cymbalta] 60 mg PO DAILY Famotidine [Pepcid] 40 mg PO HS Riluzole [Rilutek] 50 mg PO BID rOPINIRole HCL [Requip] 0.5 mg PO HS PRN PRN Reason: restless legs Leuprolide Acetate [Lupron Depot] 22.5 mg IM Q90D Xgeva 120mg 120 mg SQ Q30D Calcium Carbonate/Vitamin D3 [Calcium 600-Vit D3 5 Mcg (200 Iu)] 1 tab PO DAILY Tamsulosin [Flomax] 0.4 mg PO BID Apixaban [Eliquis] 5 mg PO BID Discharge Medication List Niacin 250 mg PO HS 05/10/17 [History] Esomeprazole Magnesium [NexIUM] 40 mg PO DAILY 05/12/18 [History] Amitriptyline HCl [Elavil] 25 mg PO HS 09/16/18 [History] Ezetimibe [Zetia] 10 mg PO HS 09/16/18 [History] Baclofen 10 mg PO BID 07/24/19 [History] Cholecalciferol [Vitamin D3 (25 Mcg = 1000 Iu)] 2,000 unit PO DAILY 07/24/19 [History] DULoxetine HCL [Cymbalta] 60 mg PO DAILY 07/24/19 [History] Famotidine [Pepcid] 40 mg PO HS 07/24/19 [History] Riluzole [Rilutek] 50 mg PO BID 07/24/19 [History] rOPINIRole HCL [Requip] 0.5 mg PO HS PRN 07/24/19 [History] Leuprolide Acetate [Lupron Depot] 22.5 mg IM Q90D 07/27/19 [History] Xgeva 120mg 120 mg SQ Q30D 07/27/19 [History] Apixaban [Eliquis] 5 mg PO BID 06/21/20 [History] Calcium Carbonate/Vitamin D3 [Calcium 600-Vit D3 5 Mcg (200 Iu)] 1 tab PO DAILY 06/21/20 [History] Tamsulosin [Flomax] 0.4 mg PO BID 06/21/20 [History] Follow up Appointment(s)/Referral(s): Jose Carlos Brownlee MD [Primary Care Provider] - 3 Days Discharge Disposition: HOME WITH HOME HEALTH SERVICES
--- NOTE | 2020-06-22 11:14 | XR ---
EXAMINATION TYPE: XR chest 1V portable DATE OF EXAM: 06/22/2020 HISTORY: Shortness of breath. COMPARISON: 06/21/2020 TECHNIQUE: Single view of the chest is submitted. FINDINGS: Demonstrated are scattered senescent parenchymal change. Lung volumes are diminished. Increased basilar markings may reflect developing pneumonia. Correlate c linically. The heart is stable. Hilar and mediastinal structures are within normal limits. Degenerative changes are seen of the dorsal spine. IMPRESSION: 1. Lung volumes are diminished. Increased basilar markings may reflect developing pneumonia. Correla te clinically.
--- NOTE | 2020-06-22 14:55 | P.PN ---
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
[2020-06-22 15:12] VITALS: BP 109/71; PULSE 89; RESP 16; TEMP 97.8
--- NOTE | 2020-06-22 15:23 | P.CNPUL ---
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 He also has history of prostate cancer metastatic to his bone. I have been involved in the patient's care back in 2018 and at that time the patient was treated for pulmonary embolism and since then the patient has a maternal long-term and to coagulation with Eliquis. The patient was recently admitted to [facility] for increased dy spnea. He was treated for aspiration pneumonia at [facility]. The patient was given IV antibiotics. The patient was discharged home after improvement. The patient apparently was given antibiotics to be completed on outpatient basis, and the patient did not take any further antibiotics at the got confused and she was not sure where to find the prescribed antibiotics. The patient came back to our hospital for some shortness of breath. Currently is on room air oxygen. Is awake and alert. is at the bedside. No reported aspiration. No reported nausea vomiting or emesis. No reported abdominal distention. Active site is dry clean and intact. He does have a very weak cough. He is afebrile. No significant leukocytosis. Pro-calcitonin level is pending for now. On room air oxygen, the patient's pulse ox is around 93%. On 2 L his pulsating load of 95%. Hemodynamically stable. COVID-19 testing came back negative. Influenza A and B are negative. RSV by PCR is also negative. Review of Systems Constitutional: Reports weakness Eyes: denies as per HPI, denies blurred vision, denies bulging eye, denies decreased vision, denies diplopia, denies discharge, denies dry eye, denies irritation, denies itching, denies pain, denies photophobia, denies loss of peripheral vision, denies loss of vision, denies tunnel vision/blind spots Ears: deny: decreased hearing, ear discharge, earache, tinnitus Ears, nose, mouth and throat: Denies headache, Denies sore throat Breasts: absent: as per HPI, gynecomastia Cardiovascular: Reports dyspnea on exertion, Reports shortness of breath Respiratory: Reports cough, Reports pain on inspiration, Reports pleurisy Gastrointestinal: Reports as per HPI Genitourinary: Reports as per HPI Musculoskeletal: Reports arm numbness/tingling, Reports atrophy, Reports gait dysfunction, Reports muscle weakness Musculoskeletal: absent: ankle pain, ankle stiffness, ankle swelling Integumentary: Reports as per HPI Neurological: Reports as per HPI, Reports change in speech, Reports gait dysfunction, Reports lack of coordination, Reports motor disturbance, Reports numbness, Reports sensory deficit, Reports weakness, unable to communicate Psychiatric: Reports as per HPI Endocrine: Reports as per HPI Hematologic/Lymphatic: Reports as per HPI Allergic/Immunologic: Reports as per HPI Past Medical History Past Medical History: Cancer, GERD/Reflux, Hyperlipidemia, Hypertension, Prostate Disorder Additional Past Medical History / Comment(s): ALS-amyotorhic lateral sclerosis- pt is basically nonverbal/blinks eyes once for yes and twice for no-tx at [facility], has used noninvasive + pressure ventilator in past but not lately, recent hospitalization [facility] with pneumonia and experienced urinary retention/has IDC but was to come out after 7-10 days/pt is normally aware of needing to urinate/move bowels, dysphagia with peg tube-strictly NPO, nonambulatory/charmaine lift to wheelchair, prostate cancer with ty mets/receives lupron injections, past HTN, hiatal hernia, gastritis, past RLS History of Any Multi-Drug Resistant Organisms: None Reported Past Surgical History: Appendectomy, Cholecystectomy, Hernia Repair, Orthopedic Surgery Additional Past Surgical History / Comment(s): Peg tube, EGD, colonoscopy, anterior approach cervicle surgery. Past Anesthesia/Blood Transfusion Reactions: No Reported Reaction Additional Past Anesthesia/Blood Transfusion Reaction / Comment(s): no hx blood transfusion Smoking Status: Former smoker - Past Family History Mother Family Medical History: Coronary Artery Disease (CAD) Additional Family Medical History / Comment(s): Heart cath minimal disease Father Family Medical History: No Reported History Medications and Allergies Home Medications Medication Instructions Recorded Confirmed Type Niacin 250 mg PO HS 05/10/17 06/21/20 History Esomeprazole Magnesium [NexIUM] 40 mg PO DAILY 05/12/18 06/21/20 History Amitriptyline HCl [Elavil] 25 mg PO HS 09/16/18 06/21/20 History Ezetimibe [Zetia] 10 mg PO HS 09/16/18 06/21/20 History Baclofen 10 mg PO BID 07/24/19 06/21/20 History Cholecalciferol [Vitamin D3 (25 2,000 unit PO DAILY 07/24/19 06/21/20 History Mcg = 1000 Iu)] DULoxetine HCL [Cymbalta] 60 mg PO DAILY 07/24/19 06/21/20 History Famotidine [Pepcid] 40 mg PO HS 07/24/19 06/21/20 History Riluzole [Rilutek] 50 mg PO BID 07/24/19 06/21/20 History rOPINIRole HCL [Requip] 0.5 mg PO HS PRN 07/24/19 06/21/20 History Leuprolide Acetate [Lupron Depot] 22.5 mg IM Q90D 07/27/19 06/21/20 History Xgeva 120mg 120 mg SQ Q30D 07/27/19 06/21/20 History Apixaban [Eliquis] 5 mg PO BID 06/21/20 06/21/20 History Calcium Carbonate/Vitamin D3 1 tab PO DAILY 06/21/20 06/21/20 History [Calcium 600-Vit D3 5 Mcg (200 Iu)] Tamsulosin [Flomax] 0.4 mg PO BID 06/21/20 06/21/20 History Amoxicillin/Potassium Clav 1 tab PO Q12HR 10 Days #20 tab 06/22/20 Rx [Augmentin 875-125 Tablet] Allergies Allergy/AdvReac Type Severity Reaction Status Date / Time No Known Allergies Allergy Verified 06/21/20 09:30 Physical Exam Vitals: Vital Signs Temp Pulse Pulse Resp BP Pulse Ox 06/22/20 15:11 97.8 F 89 16 109/71 95 06/22/20 14:40 93 L 06/22/20 08:56 78 06/22/20 08:48 79 99 06/22/20 07:40 98.0 F 85 17 149/79 98 06/22/20 02:00 97.7 F 86 17 157/83 97 06/21/20 20:20 84 06/21/20 20:04 84 06/21/20 20:00 98.3 F 92 16 145/79 98 Intake and Output 06/22/20 06/22/20 06/22/20 06:59 14:59 22:59 Other: Voiding Method Diaper # Voids 5 The patient is calm comfortable and the patient is not in acute respiratory distress, he whispers and is unable to speak and the patient has a very weak cough. He has a weak cough. He has obvious fasciculations of the muscles of the upper and lower extremities and sometimes the mouth and the tongue. He is on room air oxygen at this point in time. He is not using it as a muscle breathing. Head exam was generally normal. There was no scleral icterus or corneal arcus. Mucous membranes were moist. Neck was supple and without jugular venous distension, thyromegaly, or carotid bruits. Carotids were easily palpable bilaterally. There was no adenopathy. Lungs sounds are diminished bilaterally especially in the lung bases and the patient is a weak cough. He has pleurisy and is unable to fully expand his lungs. Cardiac exam revealed the PMI to be normally situated and sized. The rhythm was regular and no extrasystoles were noted during several minutes of auscultation. The first and second heart sounds were normal and physiologic splitting of the second heart sound was noted. There were no murmurs, rubs, clicks, or gallops. Abdominal exam revealed normal bowel sounds. The abdomen was soft, non-tender, and without masses, organomegaly, or appreciable enlargement of the abdominal aorta. Examination of the extremities revealed easily palpable radial, femoral and pedal pulses. There was no cyanosis, clubbing or edema. Examination of the skin revealed no evidence of significant rashes, suspicious appearing nevi or other concerning lesions. Neurologically the patient has normal mentation. The patient has motor dysfunction and weakness in the upper and lower extremities and the patient has muscle atrophy and fasciculations. No rigidity. Results - Laboratory Findings CBC and BMP: 06/22/20 09:18 06/22/20 09:18 PT/INR, D-dimer PT 10.0 sec (9.0-12.0) 06/21/20 02:02 INR 0.9 (<1.2) 06/21/20 02:02 Abnormal lab findings: Abnormal Labs 06/21/20 06/21/20 06/21/20 02:02 02:02 02:02 WBC 12.7 H RBC 4.24 L Hgb Hct 38.9 L Neutrophils # 8.6 H APTT 18.3 L Potassium 5.8 H Carbon Dioxide 32 H BUN 32 H Creatinine 0.27 L 06/22/20 06/22/20 09:18 09:18 WBC RBC 3.92 L Hgb 12.1 L Hct 36.9 L Neutrophils # APTT Potassium Carbon Dioxide BUN Creatinine 0.28 L - Diagnostic Findings Chest x-ray: image reviewed Assessment and Plan Plan: 1 chronic dyspnea with a possibility of a superinfection/pneumonia. The patient was treated at [facility] for pneumonia. The patient was discha rged home on antibiotics and he did not receive any further antibiotics on outpatient basis as the did not have the medications available for him. Currently, he is on room air oxygen. His lung volumes on the chest x-ray are quite small and there is some atelectatic changes and infiltrates bilaterally and it is quite hard to say if those infiltrates are related to pneumonia versus atelectasis. He doesn't have any significant leukocytosis. Pro-calcitonin level is pending for now. Nevertheless, no signs of any significant respiratory distress. No use of ecchymosis of breathing. He is on room air oxygen. 2 history of pulmonary embolism and the long-term articulation with Eliquis. 3 chronic respiratory insufficiency due to complications of ALS, neuromuscular weakness, smaller lung volumes, diaphragmatic weakness, weak cough 3 ALS utilizing a noninvasive positive pressure ventilator overnight and was being considered for PEG tube insertion in 2 weeks time due to progressive loss in swallowing capacity. No reported aspiration. Diagnosis established in 2019 and the patient has been progressively getting worse. 4 metastatic prostate cancer 5 hypertension 6 hyperlipidemia Plan Overall pulmonary status is stable The patient can be potentially discharged home to complete outpatient antibiotic course with Augmentin liquid and suggests completing a total of seven-day course Aspiration precautions Keep the head of the bed elevated Enteral feeding for nutritional support Continue using the noninvasive positive pressure ventilator overnight CoughAssist device at home along with chest PT Monitor oxygenation Possible discharge home today. Pro-calcitonin level has been also ordered.
== END 2020-06-22 18:11 | disposition home health service (06) | DRG 57 ==
LOC: EC 01:16 → 4SSUR 02:51
PROVIDERS: ADMIT Internal Medicine; ATTEND Internal Medicine
PROC: 3E0G76Z Introduction of Nutritional Substance into Upper GI, Via Natural or Artificial Opening (ICD-10-PCS; principal; 2020-06-21)
DX: G12.21 Amyotrophic lateral sclerosis (principal); J98.11 Atelectasis; C79.51 Secondary malignant neoplasm of bone; E78.5 Hyperlipidemia, unspecified; F41.0 Panic disorder [episodic paroxysmal anxiety]; G25.81 Restless legs syndrome; I10 Essential (primary) hypertension; K21.9 Gastro-esophageal reflux disease without esophagitis; R09.02 Hypoxemia; Z74.01 Bed confinement status; Z79.01 Long term (current) use of anticoagulants; Z79.899 Other long term (current) drug therapy; Z82.49 Family history of ischemic heart disease and other diseases of the circulatory system; Z85.46 Personal history of malignant neoplasm of prostate; Z86.711 Personal history of pulmonary embolism; Z87.01 Personal history of pneumonia (recurrent); Z87.891 Personal history of nicotine dependence; Z99.3 Dependence on wheelchair; R33.9 Retention of urine, unspecified; Z20.822 Contact with and (suspected) exposure to COVID-19; Z90.49 Acquired absence of other specified parts of digestive tract; Z93.1 Gastrostomy status
CPT/HCPCS: 36415; 71045; 80048; 80053; 83605; 83880; 84484; 85025; 85027; 85610; 85730; 87040; 87636; 93005; 94640; 99285